=== PATIENT | male | born 1955 | race Caucasian/White ===

== ENCOUNTER 2023-01-05 11:10 | Inpatient (IN) | payer MEDICARE, SELFPAY ==
[2023-01-05] VITALS (19 sets, daily range): BP systolic 121–174; BP diastolic 68–103; PULSE 61–94; RESP 14–18; TEMP 36.1–37.1; O2SAT 91–99; BMI 32.3
--- NOTE | 2023-01-05 11:35 | ECG_ITS ---
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 Measurements Intervals [place] Rate: 61 P: 26 MO: 200 QRS: -25 QRSD: 110 T: -12 QT: 424 QTc: 430 Interpretive Statements SINUS RHYTHM BORDERLINE LEFT AXIS DEVIATION [QRS AXIS < -20] INCOMPLETE RIGHT BUNDLE BRANCH BLOCK [90+ ms QRS DURATION, TERMINAL R IN V1/V2, 40+ ms S IN I/aVL/V4/V5/V6] MODERATE VOLTAGE CRITERIA FOR LVH, CONSIDER NORMAL VARIANT [MEETS CRITERIA IN ONE OF: R(aVL), S(V1), R(V5), R(V5/V6)+S(V1)] No previous ECG available for comparison Electronically Signed On 01-06-2023 8:31:40 CDT by Steve Zhu M.D. [id number]
--- NOTE | 2023-01-05 11:40 | W.ED.ABDPA2 ---
HPI - Abdominal Pain General: Chief Complaint: Abdominal Pain Stated Complaint: upper stomach pain Time Seen by Provider: 01/05/23 11:11 History of Present Illness: Mr. Ramirez is a 67-year-old gentleman without significant past medical history presenting to the emergency department for evaluation of epigastric pain. Notes onset of symptoms just before 8 after eating breakfast. Denies choking episode or known specific provoking event. Has had nausea but no vomiting. Past few days has been at baseline health. Moderate intensity. Course has persisted. No other specific changes in health, exacerbating, or alleviating factors identified. Onset (ago): hour(s) Pain Consistency: constant Location: Epigastric Severity: moderate Quality: cramping Relieving factors: nothing Associated Symptoms: Reports nausea; Denies diarrhea, fever(s) and vomiting Review of Systems General: Reports: 10 or more systems reviewed and unremarkable except in HPI and below Const: Denies: fever(s) GI: Reports: nausea; Denies: vomiting or diarrhea PFS ED PFSH: Medical History (Updated 01/16/23 @ 13:24 by DALLIN Rausch) Complete small bowel obstruction Dehydration Leukocytosis No significant past medical history Surgical History No significant past surgical history Social History (Updated 01/16/23 @ 13:25 by DALLIN Rausch) Smoking and tobacco status: never smoked Physical Exam Const: COMMON NORMALS: alert GENERAL APPEARANCE: cooperative and well developed HENMT: COMMON NORMALS: normocephalic and atraumatic HEAD & SCALP: normocephalic and atraumatic Eye: COMMON NORMALS: conjunctivae normal CONJUNCTIVA: Yes conjunctivae normal SCLERA: sclerae normal Neck/C-Spine: COMMON NORMALS: supple GENERAL: Yes trachea midline Resp: COMMON NORMALS: normal respiratory effort and clear to auscultation bilaterally EFFORT & INSPECTION: Yes able to speak in complete sentences AUSCULTATION: clear to auscultation bilaterally Cardio: COMMON NORMALS: regular rate and regular rhythm RATE: regular rate RHYTHM: regular rhythm GI: COMMON NORMALS: Soft to palpation PALPATION: Yes Soft to palpation, Yes Tenderness to palpation present (GI), No Guarding due to palpation present (GI) and No Rigid due to palpation Extremity: GENERAL: Yes normal exam except as noted and No edema Neuro: COMMON NORMALS: moves all extremities SENSORIUM/ORIENTATION: Yes alert and No Orientation impaired Psych: COMMON NORMALS: mental status grossly normal and Normal thought process present THOUGHT PROCESS: Normal thought process present Course Vital Signs: Vital signs: Vital Signs Temperature 98.2 F 01/09/23 07:31 Pulse Rate 77 01/09/23 11:07 Respiratory Rate 18 01/09/23 11:07 Blood Pressure 155/97 01/09/23 07:31 Pulse Oximetry 94 01/09/23 11:07 Oxygen Delivery Me thod Room Air 01/09/23 07:41 Oxygen Flow Rate 0 01/08/23 20:00 MDM - Abdominal Pain Medical Decision Making 67-year-old gentleman presenting with abdominal symptoms. Exam as above. Nontoxic. Abdominal tenderness without evidence of acute surgical abdomen. EKG demonstrates sinus rhythm with left axis deviation and interventricular conduction delay. Nonspecific ST segment abnormalities, no STEMI. Labs with no leukocytosis, microcytic anemia, normal platelet count. Metabolic panel without significant derangement. Negative range 2-hour delta troponin. CT demonstrates high-grade closed-loop small bowel obstruction with transition point in the left lower quadrant without clear cause of obstruction identified. During ED course patient treated with antiemetic, analgesia. Discussed with general surgery who came to about the patient. Plan for operative management. Hospital service consulted for admission. The results of ED evaluation were discussed with the patient including plan for admission due to requirement for level of care not available if discharged to prevent significant worsening/deterioration. Patient agreeable with plan. Medical Records I reviewed the patient's medical records. Lab Data I reviewed the patient's lab results. 01/09/23 04:20 01/08/23 04:27 Labs/Radiology: Radiology Impressions Abdomen/Pelvis CT 01/05/23 12:36 IMPRESSION: 1. High-grade closed loop small bowel obstruction with transition point in the left lower quadrant. The cause of obstruction is not apparent. No sign of bowel necrosis. 2. Moderate splenic enlargement. 3. Incidental findings above. ADDENDUM: 01/05/23 [id number] THIS REPORT CONTAINS FINDINGS THAT MAY BE CRITICAL TO PATIENT CARE. The findings were verbally communicated via telephone conference with Cruz Castro at 1:31 PM CDT on 01/05/2023. The findings were acknowledged and understood. Laboratory Results WBC 9.7 10^3/uL (4.0-10.0) 01/05/23 11:49 RBC 5.27 10^6/uL (4.1-5.3) 01/05/23 11:49 Hgb 10.6 g/dL (11.7-16.6) L 01/05/23 11:49 Hct 34.4 % (42.0-52.0) L 01/05/23 11:49 MCV 65.3 fl (80-94) L 01/05/23 11:49 MCH 20.1 pg (28.0-34.0) L 01/05/23 11:49 MCHC 30.8 g/dL (30.0-36.0) 01/05/23 11:49 RDW 16.0 % (12.1-15.1) H 01/05/23 11:49 Plt Count 347 10^3/cmm (130-400) 01/05/23 11:49 MPV 11.2 fL (7.4-10.4) H 01/05/23 11:49 Neut % (Auto) 85.0 % 01/05/23 11:49 Lymph % (Auto) 9.3 % 01/05/23 11:49 [place] % (Auto) 4.4 % 01/05/23 11:49 Eos % (Auto) 0.5 % 01/05/23 11:49 Baso % (Auto) 0.5 % 01/05/23 11:49 Neut # (Auto) 8.25 10^3/uL (1.8-7.7) H 01/05/23 11:49 Lymph # (Auto) 0.9 10^3/uL (0.8-4.8) 01/05/23 11:49 [place] # (Auto) 0.4 10^3/uL (0.2-0.9) 01/05/23 11:49 Eos # (Auto) 0.1 10^3/uL (0.0-0.8) 01/05/23 11:49 Baso # (Auto) 0.1 10^3/uL (0.0-0.1) 01/05/23 11:49 Nucleated RBC % (auto) 0.2 % 01/05/23 11:49 Nucleated RBCs # 0.0 /100WBC 01/05/23 11:49 Sodium 141 mmol/L (136-145) 01/05/23 11:49 Potassium 4.7 mmol/L (3.5-5.1) 01/05/23 11:49 Chloride 104 mmol/L (98-107) 01/05/23 11:49 Carbon Dioxide 26 mmol/L (22-29) 01/05/23 11:49 Anion Gap 15.7 (5-19) 01/05/23 11:49 BUN 18 mg/dL (8-23) 01/05/23 11:49 Creatinine 0.7 mg/dL (0.7-1.2) 01/05/23 11:49 GFR Calculation 112.5 mL/min (90-130) 01/05/23 11:49 Glucose 116 mg/dL (65-115) H 01/05/23 11:49 Calculated Osmolality 295 mOsm/kg (285-295) 01/05/23 11:49 Lactic Acid 1.0 mmol/L (0.5-2.2) 01/05/23 13:52 Calcium 9.2 mg/dL (8.5-10.5) 01/05/23 11:49 Total Bilirubin 0.8 mg/dL (0.15-1.2) 01/05/23 11:49 AST 15 U/L (0-40) 01/05/23 11:49 ALT 21 U/L (0-41) 01/05/23 11:49 Alkaline Phosphatase 67 U/L (40-130) 01/05/23 11:49 Troponin T Baseline 9 ng/L (0-15) 01/05/23 11:49 Troponin T 120 Minute 6.25 ng/L (0-15) 01/05/23 13:52 Delta Troponin T -2.75 ABS# (0-10) L 01/05/23 13:52 Total Protein 7.6 g/dL (6.6-8.7) 01/05/23 11:49 Albumin 4.7 g/dL (3.5-5.2) 01/05/23 11:49 Globulin 2.9 g/dL (1.3-4.6) 01/05/23 11:49 Lipase 22 U/L (13-60) 01/05/23 11:49 Vitamin B12 569 pg/mL (232-1245) 01/05/23 16:38 Blood Type A Positive 01/05/23 16:38 Rho(D) Type Positive 01/05/23 16:38 Antibody Screen Negative 01/05/23 16:38 Discharge Plan Discharge Patient Disposition: Admitted As Inpatient Admit Provider: Dean Brasher Clinical Impression: Complete small bowel obstruction Condition: Stable Discharge Diet: GI Soft Discharge Activity: Increase activity as tolerated Coding Level of Care Code ED Lapping Machine Set Up Operator for Claug Sandro
[2023-01-05] MEDS: ondansetron 2 mg/ML SDV 2 mL 4 MG IVP ×3 (11:52→21:48)
[2023-01-05] MEDS: morphine 4 mg/mL SDV 1 mL IVP (11:53)
[2023-01-05 11:57] LABS: Basophils # 0.1 10^3/uL (0.0-0.1); Basophils % 0.5 %; Eosinophils # 0.1 10^3/uL (0.0-0.8); Eosinophils % 0.5 %; Hematocrit 34.4 % (42.0-52.0); Hemoglobin 10.6 g/dL (11.7-16.6); Lymphocytes # 0.9 10^3/uL (0.8-4.8); Lymphocytes % 9.3 %; Mean Corpuscular HGB Conc 30.8 g/dL (30.0-36.0); Mean Corpuscular Hemoglobin 20.1 pg (28.0-34.0); Mean Corpuscular Volume 65.3 fl (80-94); Mean Platelet Volume 11.2 fL (7.4-10.4); Monocytes # 0.4 10^3/uL (0.2-0.9); Monocytes % 4.4 %; Neutrophils # 8.25 10^3/uL (1.8-7.7); Nucleated Red Blood Cells % 0.2 %; Platelet Count 347 10^3/cmm (130-400); Red Blood Count 5.27 10^6/uL (4.1-5.3); White Blood Count 9.7 10^3/uL (4.0-10.0)
[2023-01-05 12:26] LABS: Alanine Aminotransferase 21 U/L (0-41); Albumin Level 4.7 g/dL (3.5-5.2); Alkaline Phosphatase 67 U/L (40-130); Anion Gap 15.7 (5-19); Aspartate Amino Transferase 15 U/L (0-40); Blood Urea Nitrogen 18 mg/dL (8-23); Calcium 9.2 mg/dL (8.5-10.5); Carbon Dioxide 26 mmol/L (22-29); Chloride 104 mmol/L (98-107); Globulin 2.9 g/dL (1.3-4.6); Glomerular Filtration Rate 112.5 mL/min (90-130); Glucose 116 mg/dL (65-115); Lipase 22 U/L (13-60); Osmolality Calculated 295 mOsm/kg (285-295); Potassium 4.7 mmol/L (3.5-5.1); Sodium 141 mmol/L (136-145); Total Bilirubin 0.8 mg/dL (0.15-1.2); Total Protein 7.6 g/dL (6.6-8.7)
[2023-01-05 12:29] LABS: Troponin(5th) Baseline 9 ng/L (0-15)
--- NOTE | 2023-01-05 12:36 | CTR_ITS ---
PROCEDURE INFORMATION: Exam: CT Abdomen And Pelvis With Contrast Exam date and time: 01/05/2023 12:49 PM Age: 67 years old Clinical indication: Abdominal pain; Epigastric; Additional info: Epigastric pain TECHNIQUE: Imaging protocol: Computed tomography of the abdomen and pelvis with contrast. Radiation optimization: All CT scans at this facility use at least one of these dose optimization techniques: automated exposure control; mA and/or kV adjustment per patient size (includes targeted exams where dose is matched to clinical indication); or iterative reconstruction. Contrast material: OMNI 350; Contrast volume: 100 ml; Contrast route: INTRAVENOUS (IV); REPORTING DATA: Count of CT and Cardiac NM exams in prior 12 months: This patient has received 0 known CTs and 0 known cardiac nuclear medicine studies in the 12 months prior to the current study. COMPARISON: No relevant prior studies available. RADIATION DOSE METRICS: Total DLP (mGy-cm): 1055.84 FINDINGS: Lungs: Lung bases are clear. Liver: The liver is normal. Gallbladder and bile ducts: The gallbladder is normal. There is no biliary dilation. Pancreas: The pancreas is unremarkable. Spleen: The spleen is moderately enlarged. Adrenal glands: The adrenal glands are unremarkable. Kidneys and ureters: The kidneys are unremarkable. No hydronephrosis or stones. No ureteral dilation. Stomach and bowel: There is a closed loop obstruction involving proximal small bowel. There is a long segment of moderately dilated fluid-filled small bowel in the left mid to lower abdomen. Adjacent transition points are seen in the left lower quadrant on axial series 4, image 59 and coronal series 6, image 19. Small bowel is completely decompressed distally. There is mild perienteric edema of the dilated segment. No mural pneumatosis. The colon is unremarkable. The stomach is mildly distended. The wall is of normal thickness. Appendix: The appendix is normal. Intraperitoneal space: There is no free air or significant intraperitoneal free fluid. Vasculature: There is mild aortic atherosclerotic disease. The portal, splenic and superior mesenteric veins are patent. No portal venous gas. Lymph nodes: There is no lymphadenopathy in the retroperitoneum, mesentery, pelvis or inguinal regions. Urinary bladder: The urinary bladder is unremarkable. Reproductive: The prostate and seminal vesicles are unremarkable. Bones/joints: There is moderate degenerative disease in the lumbar spine. The pelvis and hips are unremarkable. Soft tissues: There is a small fat containing right inguinal hernia. CT/CT abdomen pelvis w con* [id number] IMPRESSION: 1. High-grade closed loop small bowel obstruction with transition point in the left lower quadrant. The cause of obstruction is not apparent. No sign of bowel necrosis. 2. Moderate splenic enlargement. 3. Incidental findings above.
[2023-01-05] MEDS: iohexol 350 mg/mL 500 mL Btl (per mL) IV (12:51)
--- NOTE | 2023-01-05 14:05 | ECG_ITS ---
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 Measurements Intervals [place] Rate: 63 P: 38 WA: 201 QRS: -26 QRSD: 112 T: -3 QT: 423 QTc: 433 Interpretive Statements SINUS RHYTHM BORDERLINE LEFT AXIS DEVIATION [QRS AXIS < -20] INCOMPLETE RIGHT BUNDLE BRANCH BLOCK [90+ ms QRS DURATION, TERMINAL R IN V1/V2, 40+ ms S IN I/aVL/V4/V5/V6] MODERATE VOLTAGE CRITERIA FOR LVH, CONSIDER NORMAL VARIANT [MEETS CRITERIA IN ONE OF: R(aVL), S(V1), R(V5), R(V5/V6)+S(V1)] Compared to ECG 01/05/2023 11:48:50 No significant changes Electronically Signed On 01-06-2023 8:36:47 CDT by Steve Zhu M.D. [id number]
[2023-01-05 14:29] LABS: Troponin 5 2HR 6.25 ng/L (0-15)
--- NOTE | 2023-01-05 14:30 | PC.NURSE ---
pt refused NG tube placement until he speaks with surgeon. Gloria notified
[2023-01-05 15:07] LABS: Troponin 5 2HR Delta -2.75 ABS# (0-10)
--- NOTE | 2023-01-05 15:38 | P.CONIM_ITS ---
Providers/Reason For Consult Consulting Physician/Specialty*: General surgery Reason for Consult*: Small bowel obstruction Requesting Physician: Dr. Castro Primary Care Provider: Soy Fenton [facility]- History of Present Illness History of Present Illness Dennis Ramirez is a 67 year old male with past medical history of thalassemia minor who presents with 8 hours of abdominal pain and distention. Patient states that after breakfast he started feeling abdominal pain which has increased in intensity pain is cramping and has become continuous now 6-7 out of 10. Minimal nausea but denies vomiting. Patient denies any previous surgical interventions in the abdomen. Denies changes in bowel habits over the last month. Last bowel movement was this morning, has not passed gas since then. Review of Systems Narrative: 10 point review of systems was done and is negative otherwise noted in HPI General: Well-developed, no other constitutional symptoms Respiratory: No respiratory stress Abdomen: Abdominal pain, nausea, distention Musculoskeletal: Occasional right knee pain. Medications/Allergies Home Medications Medication Instructions Recorded Confirmed Last Taken Type Lactobacillus acidophilus 20,000 mmu cells PO DAILY 01/05/23 01/05/23 01/05/23 History (Acidophilus capsule) alfalfa 250 mg tablet 1,750 mg PO DAILY 01/05/23 01/05/23 01/05/23 History ascorbic acid (vitamin C) 500 mg 4,000 mg PO DAILY 01/05/23 01/05/23 01/05/23 History tablet (Vitamin C) beta carotene 30 mg capsule 30 mg PO DAILY 01/05/23 01/05/23 01/05/23 History cinnamon bark 500 mg capsule 3,500 mg PO DAILY 01/05/23 01/05/23 01/05/23 History (Cinnamon) coconut oil 1,000 mg capsule 2,000 mg PO DAILY 01/05/23 01/05/23 01/05/23 History garlic 100 mg tablet 300 mg PO DAILY 01/05/23 01/05/23 01/05/23 History bharath root extract 15 mg chewable 45 mg PO DAILY 01/05/23 01/05/23 01/05/23 Hi story tablet green tea leaf extract 2 cap PO DAILY 01/05/23 01/05/23 01/05/23 History meloxicam 7.5 mg tablet 7.5 mg PO DAILY 01/05/23 01/05/23 01/05/23 History saw palm 160 mg-vit E 100 3 tab PO DAILY 01/05/23 01/05/23 01/05/23 History unit-selen 100 yvk-esys-uoirzk-pygeum tablet ([facility]) saw palmetto 160 mg capsule 1,120 mg PO DAILY 01/05/23 01/05/23 01/05/23 History selenium 200 mcg tablet 200 mcg PO DAILY 01/05/23 01/05/23 01/05/23 History tramadol 50 mg tablet 50 mg PO Q6H PRN Pain 01/05/23 01/05/23 Unknown History Allergies Allergy/AdvReac Type Severity Reaction Status Date / Time pork derived (porcine) Allergy Unknown Verified 01/05/23 11:28 shellfish derived Allergy Unknown Verified 01/05/23 11:28 PFSH Acute PFSH: Medical History (Updated 01/05/23 @ 15:18 by Cruz Castro MD) No significant past medical history Surgical History (Updated 01/05/23 @ 11:53 by Cruz Castro MD) No significant past surgical history Vitals/I&O/Wt Last Vital Signs Temp 98.0 F 01/05/23 11:22 Pulse 66 01/05/23 11:22 Resp 14 01/05/23 11:22 BP 145/87 01/05/23 11:22 Pulse Ox 97 01/05/23 11:22 O2 Del Method Room Air 01/05/23 11:22 Weight last 48 hrs Weight 225 lb Physical Exam Narrative: General : Patient is well developed, oriented x3 Head : Normal cephalic, a-traumatic. Nose : Mucous membranes are without erythema. Lungs : Equal chest rise bilaterally, no use of accessory muscles, trachea is midline. CV : Rate and rhythm are normal. Abdomen : Abdomen is minimally distended, tender on the mid abdomen and left lower quadrant, no peritoneal signs at the moment. Data 01/05/23 11:49 01/05/23 11:49 A&P Assessment and plan (1) Complete small bowel obstruction: Is a 67-year-old male with no surgical history and past history of thalassemia minor who presents with abdominal pain over the last 8 hours. Work-up in the emergency department included a CT scan which show evidence of a closed-loop obstruction with a transition point in the left lower quadrant. I Personally reviewed all labs and imaging I agree with the radiological assessment, I cannot identify a specific cause of obstruction. I have discussed with the patient potential treatment options, and the need for surgery. I have offered exploratory laparotomy with possible small bowel resection, possible ostomy creation, and other related procedures. I Thoroughly explained all the risk and benefits of the operation including the risks of ostomy creation, need for bowel resection, damage to surrounding structures, bleeding, need for additional surgical interventions, adhesions, leak, recurrent small bowel obstruction, . Patient and family members shows understanding of our discussion and agree to proceed with surgery. Due to history of thalassemia minor and high likelihood of need of close monitoring during postoperative care I have requested the patient to be evaluated by our hospitalist team for inpatient management. ? On-call to the OR for exploratory laparotomy. ? NG tube discussed and patient agreeable ? We will administer 1 L bolus of LR ? Consultation to hospitalist team is required for inpatient management Coding Level of Care Code 94113 Diagnoses Complete small bowel obstruction K56.601
--- NOTE | 2023-01-05 15:42 | P.HP_ITS ---
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 No previous history of abdominal surgeries. In the ER he was diagnosed with closed-loop obstruction he was taken to the OR by the surgeon, hospitalist was requested to admit the patient for postoperative management. Review of Systems Const: Denies: fever(s) Eyes: Denies: change in vision ENMT: Denies: throat pain Card: Denies: chest pain Resp: Denies: dyspnea GI: Denies: nausea : Denies: flank pain Musc: Denies: neck pain Skin/Breast: Denies: skin tenderness Medications/Allergies Home Medications Medication Instructions Recorded Confirmed Last Taken Type Lactobacillus acidophilus 20,000 mmu cells PO DAILY 01/05/23 01/05/23 01/05/23 History (Acidophilus capsule) alfalfa 250 mg tablet 1,750 mg PO DAILY 01/05/23 01/05/23 01/05/23 History ascorbic acid (vitamin C) 500 mg 4,000 mg PO DAILY 01/05/23 01/05/23 01/05/23 History tablet (Vitamin C) beta carotene 30 mg capsule 30 mg PO DAILY 01/05/23 01/05/23 01/05/23 History cinnamon bark 500 mg capsule 3,500 mg PO DAILY 01/05/23 01/05/23 01/05/23 Hist ory (Cinnamon) coconut oil 1,000 mg capsule 2,000 mg PO DAILY 01/05/23 01/05/23 01/05/23 His tory garlic 100 mg tablet 300 mg PO DAILY 01/05/23 01/05/23 01/05/23 History bharath root extract 15 mg chewable 45 mg PO DAILY 01/05/23 01/05/23 01/05/23 History tablet green tea leaf extract 2 cap PO DAILY 01/05/23 01/05/23 01/05/23 History meloxicam 7.5 mg tablet 7.5 mg PO DAILY 01/05/23 01/05/23 01/05/23 History saw palm 160 mg-vit E 100 3 tab PO DAILY 01/05/23 01/05/23 01/05/23 History unit-selen 100 unf-fkth-wvvdjl-pygeum tablet ([facility]) saw palmetto 160 mg capsule 1,120 mg PO DAILY 01/05/23 01/05/23 01/05/23 History selenium 200 mcg tablet 200 mcg PO DAILY 01/05/23 01/05/23 01/05/23 History tramadol 50 mg tablet 50 mg PO Q6H PRN Pain 01/05/23 01/05/23 Unknown History Allergies Allergy/AdvReac Type Severity Reaction Status Date / Time pork derived (porcine) Allergy Unknown Verified 01/05/23 11:28 shellfish derived Allergy Unknown Verified 01/05/23 11:28 PFSH Acute PFSH: Medical History No significant past medical history Surgical History No significant past surgical history Vitals/I&O/Wt Last Vital Signs Temp 98.0 F 01/05/23 11:22 Pulse 66 01/05/23 11:22 Resp 14 01/05/23 11:22 BP 145/87 01/05/23 11:22 Pulse Ox 97 01/05/23 11:22 O2 Del Method Room Air 01/05/23 11:22 Weight last 48 hrs Weight 102.058 kg Physical Exam Narrative: Patient awake and alert Thin lean male GCS 15 Currently on room air Going to the OR Nonfocal neuro exam Awake and alert Tender abdomen Data 01/06/23 02:20 01/06/23 02:20 A&P Assessment and plan (1) Complete small bowel obstruction: Plan Closed-loop bowel obstruction Status post adhesiolysis Postop day 0 Continue IV fluids We will continue Zosyn and NG tube in place for next 48 hours If patient remains afebrile without worsening leukocytosis then will discontinue antibiotics He will stay at least until Friday Monitor for bowel movement and passage of flatus Patient has history of thalassemia minor monitor hemoglobin no hemodynamic instability Add DVT prophylaxis If patient is not able to eat in next 24 hours I will start PPN Full code N.p.o. Spoke with the surgeon Attestations Medical Necessity Statement*: More than 2 midnights anticipated for management of SBO Diagnoses Complete small bowel obstruction K56.601
--- NOTE | 2023-01-05 16:11 | P.ANESASSM_ITS ---
Pre-Anesthetic Assessment Height/Weight: Height 1.78 m Weight 102.058 kg Temp Pulse Resp BP Pulse Ox O2 Del Method 98.0 F 61 17 152/99 99 Room Air 01/05/23 11:22 01/05/23 15:45 01/05/23 15:45 01/05/23 15:45 01/05/23 15:45 01/05/23 11:22 ex lap Familial anesthetic complications: none Was Beta Zechariah taken within 24 hours: N/A Was Clonidine taken within 24 hours: N/A Last Intake: 07:00 Social No alcohol and No tobacco Exam alert and oriented x 3 Airway Submandibular: within normal limits Cervical ROM: within normal limits Mallampati: Class II Dentition: full Comments: Comments: full crum History/ROS No significant history except as noted Pulmonary None reported CV/HEM Murmur thalassemia minor None reported Hepatic None reported GI None reported Metabolic Morbid Obesity Musc/sk None reported Neuropsych None reported Anesthetic Plan ASA status: 2E Anesthesia: Anesthesia Evaluation and General Risk of > 500 ml blood loss (7ml/kg in children): Yes, adequate IV access and fluids planned Medications/Allergies Home Medications Medication Instructions Recorded Confirmed Last Taken Type Lactobacillus acidophilus 20,000 mmu cells PO DAILY 01/05/23 01/05/23 01/05/23 History (Acidophilus capsule) alfalfa 250 mg tablet 1,750 mg PO DAILY 01/05/23 01/05/23 01/05/23 History ascorbic acid (vitamin C) 500 mg 4,000 mg PO DAILY 01/05/23 01/05/23 01/05/23 History tablet (Vitamin C) beta carotene 30 mg capsule 30 mg PO DAILY 01/05/23 01/05/23 01/05/23 History cinnamon bark 500 mg capsule 3,500 mg PO DAILY 01/05/23 01/05/23 01/05/23 History (Cinnamon) coconut oil 1,000 mg capsule 2,000 mg PO DAILY 01/05/23 01/05/23 01/05/23 History garlic 100 mg tablet 300 mg PO DAILY 01/05/23 01/05/23 01/05/23 History bharath root extract 15 mg chewable 45 mg PO DAILY 01/05/23 01/05/23 01/05/23 History tablet green tea leaf extract 2 cap PO DAILY 0701/05/23 01/05/23 History meloxicam 7.5 mg tablet 7.5 mg PO DAILY 01/05/23 01/05/23 01/05/23 History saw palm 160 mg-vit E 100 3 tab PO DAILY 01/05/23 01/05/23 01/05/23 History unit-selen 100 thh-szio-gzkvmf-pygeum tablet (Prostate Health) saw palmetto 160 mg capsule 1,120 mg PO DAILY 01/05/23 01/05/23 01/05/23 History selenium 200 mcg tablet 200 mcg PO DAILY 01/05/23 01/05/23 01/05/23 History tramadol 50 mg tablet 50 mg PO Q6H PRN Pain 01/05/23 01/05/23 Unknown History Allergies Allergy/AdvReac Type Severity Reaction Status Date / Time pork derived (porcine) Allergy Unknown Verified 01/05/23 11:28 shellfish derived Allergy Unknown Verified 01/05/23 11:28 [facility] Anesthesia Medical History No significant past medical history Surgical History No significant past surgical history Data Anesthesia 01/05/23 11:49 01/05/23 11:49 Short CBC 01/05/23 Range/Units 11:49 WBC 9.7 (4.0-10.0) 10^3/uL Hgb 10.6 L (11.7-16.6) g/dL Hct 34.4 L (42.0-52.0) % MCV 65.3 L (80-94) fl Plt Count 347 (130-400) 10^3/cmm Neut % (Auto) 85.0 % Neut # (Auto) 8.25 H (1.8-7.7) 10^3/uL BMP 01/05/23 11:49 Sodium 141 Potassium 4.7 Chloride 104 Carbon Dioxide 26 BUN 18 Creatinine 0.7 Glucose 116 H Calcium 9.2 Cardiac Enzymes 01/05/23 01/05/23 Range/Units 11:49 13:52 Troponin T Baseline 9 (0-15) ng/L Troponin T 120 Minute 6.25 (0-15) ng/L Delta Troponin T -2.75 L (0-10) ABS# Liver Function 01/05/23 Range/Units 11:49 Total Bilirubin 0.8 (0.15-1.2) mg/dL AST 15 (0-40) U/L ALT 21 (0-41) U/L Alkaline Phosphatase 67 (40-130) U/L Albumin 4.7 (3.5-5.2) g/dL Cardiac Studies: No Data to Display
[2023-01-05] MEDS: metroNIDAZOLE IV 500 MG/100 ML PREMIX 100 MG IV (16:55)
[2023-01-05] MEDS: piperacillin-tazobactam 3.375 GM in sodium chloride 0.9% (plus) 50 ML IV (17:02)
--- NOTE | 2023-01-05 17:35 | ECG_ITS ---
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 Measurements Intervals [place] Rate: 78 P: 40 [place]: 200 QRS: -37 QRSD: 118 T: 7 QT: 414 QTc: 474 Interpretive Statements SINUS RHYTHM LEFT AXIS DEVIATION [QRS AXIS < -30] MODERATE INTRAVENTRICULAR CONDUCTION DELAY [110+ ms QRS DURATION] VOLTAGE CRITERIA FOR LVH [MEETS CRITERIA IN ONE OF: R(aVL), S(V1), R(V5), R(V5/V6)+S(V1)] Compared to ECG 01/05/2023 14:05:51 Intraventricular conduction delay now present Incomplete right bundle-branch block no longer present Electronically Signed On 01-06-2023 8:35:58 CDT by Steve Zhu M.D. [email or web address]
[2023-01-05 17:36] LABS: Vitamin B12 569 pg/mL (232-1245)
--- NOTE | 2023-01-05 18:27 | PM.OP ---
Operative Report Date of procedure: January 05, 2023 Pre-op diagnosis: Closed loop small bowel obstruction Post-op diagnosis: Closed-loop small bowel obstruction Post-op findings: Mid jejunum with small bowel obstruction caused by an adhesive band on the left lower quadrant. Adhesive band near the terminal ileum. No evidence of bowel compromise, no evidence of masses on abdominal examination. Procedure done: Exploratory laparotomy, adhesiolysis Surgeon: Dean Brasher MD Estimated blood loss: 25 cc IV fluids: 900 Urine output: 100 Complications: None Findings: Mid jejunum with small bowel obstructioncaused by an adhesive band on the left lower quadrant. Adhesive band near the terminal ileum. No evidence of bowel compromise, no evidence of masses on abdominal examination. Brief History: This is a 67-year-old male with history of thalassemia minor and no previous surgical history who presented complaining of abdominal pain in the left lower quadrant and epigastrium region for the last 8 hours he also complained of nausea no episodes of vomiting CAT scan done in the emergency department show evidence of a closed-loop small bowel obstruction with a transition point in the left lower quadrant, no specific cause could be identified on imaging. Due to the findings I offer exploratory laparotomy, after explaining all the risk and benefits of the procedure as documented in my consultation note. Consent was obtained for the procedure and patient was transferred to the operative room Procedure: Patient was placed in the supine position, intubated without difficulty, NG tube placed with 600 cc of feculent content. [place] catheter was also placed. The abdomen was prepped and draped in the usual sterile fashion. A 20 cm midline laparotomy incision was made, the incision was carried down to the level of the fascia. The abdomen was entered and careful consideration of not injuring the underlying structures. Minimal amount of intraperitoneal fluid was drained. Upon entry it was noted that the small bowel appeared to be dilated and congested, upon closing perspective and of the left lower quadrant an adhesive band was noted in the mid jejunum, the bowel was bluntly dissected, and the intestine freed. The small bowel was then eviscerated and evaluated from the ligament of Treitz to the terminal ileum. At the level where the adhesive band was noted there was signs of constriction of the small bowel as represented by bruising of the mesentery and the bowel, but no signs of ischemia. About 5 cm from the terminal ileum and additionally adhesive band was noted and lysed with Metzenbaum scissors. Intestinal content was milked distally of the point of obstruction to ensure adequate passage. Small bowel appeared to be viable and therefore it was returned to the abdominal cavity. I then examined the colon and rectum for possible masses and none were apparent. The NG tube position was confirmed in the stomach. No additional intervention was needed. The abdomen was closed in layers using 0 PDS for the fascia and yvette for the skin, the wound was irrigated before closing. Sterile dressing was applied. The patient tolerated well the procedure, was extubated and transferred to the recovery room without complications and in stable condition. I personally performed the whole operation and was scrubbed during the complete case. Related Problem List Diagnoses (1) Complete small bowel obstruction:
[2023-01-05 21:07] LABS: Troponin 5 6HR 6.01 ng/L (0-15)
[2023-01-05 21:14] LABS: Troponin 5 6HR Delta -2.99 ng/L (0-12)
[2023-01-05] MEDS: pantoprazole 40 mg SDV IVP (21:48)
--- NOTE | 2023-01-05 22:13 | PC.NURSE ---
Pt came to floor with NG tube and ng catheter in place. Ng patent and draining, NG tube placement checked and hooked up to low intermittent wall suction, draining appropriately.
[2023-01-05] MEDS: dextrose 5%-sod chloride 0.9% 1,000 ML 75 ML IV (22:44)
[2023-01-06] VITALS (12 sets, daily range): BP systolic 121–153; BP diastolic 76–89; PULSE 75–95; RESP 15–18; TEMP 36.4–37.4; O2SAT 91–94
[2023-01-06] MEDS: piperacillin-tazobactam 3.375 GM in sodium chloride 0.9% (plus) 50 ML IV ×3 (00:27→16:27)
[2023-01-06 03:28] LABS: Basophils % 0.1 %; Hematocrit 31.8 % (42.0-52.0); Hemoglobin 9.7 g/dL (11.7-16.6); Lymphocytes # 0.3 10^3/uL (0.8-4.8); Lymphocytes % 3.2 %; Mean Corpuscular HGB Conc 30.5 g/dL (30.0-36.0); Mean Corpuscular Hemoglobin 20.1 pg (28.0-34.0); Mean Platelet Volume 11.5 fL (7.4-10.4); Monocytes # 0.2 10^3/uL (0.2-0.9); Monocytes % 1.7 %; Neutrophils # 9.91 10^3/uL (1.8-7.7); Neutrophils % 94.4 %; Nucleated Red Blood Cells % 0 %; Platelet Count 325 10^3/cmm (130-400); Red Blood Count 4.82 10^6/uL (4.1-5.3); Red Cell Distribution Width 15.8 % (12.1-15.1); White Blood Count 10.5 10^3/uL (4.0-10.0)
[2023-01-06 03:51] LABS: Anion Gap 16.6 (5-19); Blood Urea Nitrogen 15 mg/dL (8-23); C Reactive Protein 11.7 mg/L (0.0-4.9); Calcium 8.6 mg/dL (8.5-10.5); Carbon Dioxide 23 mmol/L (22-29); Chloride 105 mmol/L (98-107); Glomerular Filtration Rate 96.4 mL/min (90-130); Glucose 178 mg/dL (65-115); Osmolality Calculated 295 mOsm/kg (285-295); Phosphorus 3.3 mg/dL (2.5-4.5); Potassium 4.6 mmol/L (3.5-5.1); Sodium 140 mmol/L (136-145)
[2023-01-06] MEDS: HYDROmorphone 1 mg/mL INJ 1 mL 0.4 MG IVP ×4 (03:52→19:46)
--- NOTE | 2023-01-06 07:39 | PM.PN ---
Subjective Subjective: Postoperative day 1 status post exploratory laparotomy and lysis of additions for a small bowel obstruction. Patient doing well, has ambulated yesterday, pain improving, at the moment he only complains of incisional pain which is 3/10. NG tube in place, no output over the last 12 hours. Vitals/I&O/Wt Last Vital Signs Temp 97.6 F 01/06/23 07:26 Pulse 75 01/06/23 07:26 Resp 16 01/06/23 07:26 BP 138/82 01/06/23 07:26 Pulse Ox 92 01/06/23 07:26 O2 Del Method Room Air 01/06/23 07:26 O2 Flow Rate 3 01/05/23 20:08 01/05/23 01/06/23 01/06/23 22:59 06:59 14:59 Intake Total 150 / 150 50 / 200 Output Total 125 / 125 600 / 725 Balance -550 / -525 Weight last 48 hrs Weight 225 lb Physical Exam Narrative: General: Alert and oriented x3, in good spirits Abdomen: Surgical incision covered with bandages, abdominal binder in place, abdomen is soft and minimally tender, improved distention when compared to yesterday exam. Urinary Catheter Management: [place]: Cath Placed During This Visit: yes Reason for Continuing Indwelling Catheter: Other Urinary Catheter Date of Insertion: 01/05/23 Urinary Catheter Time of Insertion: 16:45 Data 01/06/23 02:20 01/06/23 02:20 A&P Assessment and plan (1) Complete small bowel obstruction: Postoperative day 1 status post exploratory laparotomy lysis of additions for SBO. Good postoperative progress, ambulating, no bowel function yet. I have explained to the patient that ambulation is most important part of his recovery, he would like to have NG tube removed, if no output until this afternoon I will likely remove NG tube. Will wait until there is return of bowel function before start advancing the diet. In the meantime patient can have ice chips. ? Continue NG to low intermittent wall suction. ?Richmond catheter can be removed once patient is ambulating ? Please provide patient with incentive spirometer ? Appreciate additional management by hospitalist team. Attestations Medical Necessity Statement*: Patient is status post lateral laparotomy will likely require 48 to 72 hours tomorrow hospital stay. Coding Level of Care Code Acute Code for Chg Fwd Diagnoses Complete small bowel obstruction K56.379
[2023-01-06] MEDS: pantoprazole 40 mg SDV IVP ×2 (10:09→18:40)
--- NOTE | 2023-01-06 12:08 | P.PN_ITS ---
Subjective Subjective: Patient is stating that he is very uncomfortable with NG tube there is no content in NG container at all patient is endorsing soreness around surgical site however no active pain No passage of flatus no BM yet No fever or worsening of leukocytosis Vitals/I&O/Wt Last Vital Signs Temp 97.5 F L 01/06/23 11:35 Pulse 85 01/06/23 11:35 Resp 15 01/06/23 11:35 BP 135/80 01/06/23 11:35 Pulse Ox 93 01/06/23 11:35 O2 Del Method Room Air 01/06/23 11:35 O2 Flow Rate 3 01/05/23 20:08 01/05/23 01/06/23 01/06/23 22:59 06:59 14:59 Intake Total 150 / 150 50 / 200 Output Total 125 / 125 600 / 725 Balance -550 / -525 Weight last 48 hrs Weight 102.058 kg Physical Exam Narrative: Awake and alert GCS 15 Surgical site without any acute changes Currently on room air Pleasant and cooperative NG tube to low intermittent suction Clinically does not look to be in significant dehydration IV fluids running at the bedside Urinary Catheter Management: [place]: Cath Placed During This Visit: yes Reason for Continuing Indwelling Catheter: Other Urinary Catheter Date of Insertion: 01/05/23 Urinary Catheter Time of Insertion: 16:45 Data 01/06/23 02:20 01/06/23 02:20 A&P Assessment and plan (1) Complete small bowel obstruction: Plan Status post adhesiolysis postop day 1 No leukocytosis No fever No passage of flatus or BM NG tube ordered to suction As per the patient surgeon was plan to remove NG by 1 PM Meanwhile I will ask my dietitian to start PPN if he is not able to eat by lunchtime Patient has pork and shellfish allergy we will make sure he does not get any products We are touching base with pharmacy Continue Zosyn DVT prophylaxis on board Continue IV fluids Attestations Medical Necessity Statement*: Continue medical management Coding Level of Care Code 09703 Moderate MDM includes number and complexity of problems actively addressed during encounter, amount and/or complexity of data reviewed/ordered and described risk of complication, morbidity or mortality of management as do cumented Diagnoses Complete small bowel obstruction K56.601
--- NOTE | 2023-01-06 14:39 | PM.MISC ---
Miscellaneous Note Purpose of Documentation: Patient update Note: I evaluated Mr. Koch at the bedside, minimal abdominal pain during my evaluation. I flushed his NG tube, output during the last 12 hours has been only 50 cc, but this still appears to be intestinal in nature. I have informed him of these findings to the patient and explained that I will prefer him to keep NG tube until tomorrow morning for monitoring, as no return of bowel function has been seen. I also informed that in case of removal he might present with nausea vomit and will require NG tube to be repositioned. After evaluation patient decided that he will prefer NG tube to be removed despite my professional advice. NG tube removed, patient will start to ambulate and once ambulating Richmond catheter can be removed.
[2023-01-06] MEDS: dextrose 5%-sod chloride 0.9% 1,000 ML 75 ML IV (15:20)
--- NOTE | 2023-01-06 19:32 | PC.NUTR ---
Consult for PPN received. Pharmacist stated protein in PPN is synthetic, so no issue with Pt's stated allergy to pork derived products. Recommend beginning PPN @ 23 mls/hr and increasing 20 mls Q8H until goal rate of 83 mls/hr is reached, with addition of MV 10 mls/day and standard electrolytes, or per MD discretion. Details in RD assessment.
[2023-01-07] VITALS (14 sets, daily range): BP systolic 135–149; BP diastolic 56–87; PULSE 70–86; RESP 14–20; TEMP 36.4–37.2; O2SAT 92–95
[2023-01-07] MEDS: HYDROmorphone 1 mg/mL INJ 1 mL 0.4 MG IVP ×5 (00:29→19:26)
[2023-01-07] MEDS: piperacillin-tazobactam 3.375 GM in sodium chloride 0.9% (plus) 50 ML IV ×3 (00:30→16:08)
[2023-01-07] MEDS: dextrose 5%-sod chloride 0.9% 1,000 ML 75 ML IV (04:51)
[2023-01-07 05:04] LABS: Basophils # 0.1 10^3/uL (0.0-0.1); Basophils % 0.4 %; Eosinophils # 0.2 10^3/uL (0.0-0.8); Eosinophils % 1.2 %; Hematocrit 30.7 % (42.0-52.0); Hemoglobin 9.5 g/dL (11.7-16.6); Lymphocytes % 16.1 %; Mean Corpuscular HGB Conc 30.9 g/dL (30.0-36.0); Mean Corpuscular Volume 64.8 fl (80-94); Mean Platelet Volume 10.5 fL (7.4-10.4); Monocytes # 0.7 10^3/uL (0.2-0.9); Monocytes % 5.3 %; Neutrophils # 9.33 10^3/uL (1.8-7.7); Neutrophils % 76.7 %; Nucleated Red Blood Cells # 0.1 /100WBC; Nucleated Red Blood Cells % 0.4 %; Platelet Count 319 10^3/cmm (130-400); Red Blood Count 4.74 10^6/uL (4.1-5.3); Red Cell Distribution Width 15.6 % (12.1-15.1); White Blood Count 12.2 10^3/uL (4.0-10.0)
[2023-01-07 05:22] LABS: Lactate (Lactic Acid level) 1.3 mmol/L (0.5-2.2)
[2023-01-07 05:25] LABS: Anion Gap 14.1 (5-19); Blood Urea Nitrogen 12 mg/dL (8-23); Calcium 8.6 mg/dL (8.5-10.5); Carbon Dioxide 24 mmol/L (22-29); Chloride 106 mmol/L (98-107); Glomerular Filtration Rate 96.4 mL/min (90-130); Glucose 119 mg/dL (65-115); Osmolality Calculated 291 mOsm/kg (285-295); Potassium 4.1 mmol/L (3.5-5.1); Sodium 140 mmol/L (136-145)
--- NOTE | 2023-01-07 07:57 | PM.PN ---
Subjective Subjective: Patient is now postoperative day 2 status post exploratory laparotomy lysis of adhesions for small bowel obstruction. NG tube was removed yesterday, since then no nausea or vomiting. No return of bowel function yet patient is feeling that the gas is coming through but nothing has passed yet. Patient has been ambulating. Complains of incisional pain, no abdominal cramping. Vitals/I&O/Wt Last Vital Signs Temp 98.7 F 01/07/23 07:49 Pulse 73 01/07/23 07:49 Resp 18 01/07/23 07:49 BP 148/78 01/07/23 07:49 Pulse Ox 92 01/07/23 07:49 O2 Del Method Room Air 01/07/23 07:49 O2 Flow Rate 3 01/05/23 20:08 01/06/23 01/07/23 01/07/23 22:59 06:59 14:59 Intake Total 50 / 1100 1170 / 2270 Balance 50 / 1100 1170 / 2270 Weight last 48 hrs Weight 225 lb Physical Exam Narrative: Abdomen: Abdomen is soft, appropriately tender to palpation in the incisional region, there is a laparotomy incision with yvette in place, no evidence of superficial infection. Urinary Catheter Management: [place]: Cath Placed During This Visit: yes, but has since been removed by the nurse Reason for Continuing Indwelling Catheter: Other Urinary Catheter Date of Insertion: 01/05/23 Urinary Catheter Time of Insertion: 16:45 Date Urinary Catheter Removed: 01/06/23 Time Urinary Catheter Discontinued: 18:42 Data 01/07/23 04:54 01/07/23 04:54 A&P Assessment and plan (1) Complete small bowel obstruction: Plan Postoperative day 2 status post exploratory laparotomy and lysis of additions for small bowel obstruction. No return of bowel function yet, abdominal exam is benign, patient will continue to ambulate. We will continue to monitor WBC as there is an uptrend from baseline which is likely reactive after surgery. Richmond catheter was discontinued yesterday and patient is voiding freely. ? Continue n.p.o. ? Ambulate as tolerated ? Continue IV antibiotics ? We will monitor for bowel function once bowel function returns diet can be advanced ? All other care by hospitalist team Attestations Medical Necessity Statement*: Patient is a status post exploratory laparotomy for small bowel obstruction. Will likely require 2-3 more days of hospital stay Coding Level of Care Code Acute Code for Chg Fwd Diagnoses Complete small bowel obstruction K56.601
--- NOTE | 2023-01-07 09:34 | PC.CHAP ---
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 visit [] Patient/Family/Request visit [] Outpatient visit [] Follow-up visit [] Physician referral [] Code/Alert [x] Routine visit [] Staff referral [] Actively dying [] Patient sleeping [] Family support [] [] Out of room [] Palliative care [] [] Receiving care in room [] Pre-surgical visit [] Trauma [] Long length of stay [] ICU visit [] Other: Relational/Emotional Strength [] Patient feels connected with others/family/visitors/staff [x] Distress [] Loneliness/isolation [] Abandonment Spirituality of Patient [] Person of Jacklyn [] Attends Pentecostalism of their Jacklyn [] Believes in Prayer [] Reads Bible or Restorationism materials [x] There are Spiritual issues to be addressed 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 Interventions [] Prayer [] Active listening [] Non-anxious presence [] Spiritual/emotional support [] Crisis/trauma care [] Spiritual counseling [] Bereavement support [] Provided bereavement packet [] Provided Bible/devotional materials [] Provided toy/stuffed animal, coloring book to patient or family member [] Provided Communion [] Anointing/Lamar [] Salvation [x] Completed spiritual assessment [] Other: Impact on Illness or Injury [] Angry [] Fearful [] Anxious [] Often cries [] Exhaustion [] Unable to work [] Unable to attend confucianism [] Unable to walk/stand [] Unable to read [] Unable to drive [] Unable to eat/drink [] Unable to sleep [] Unable to be with family [] Patient intubated [] Other: Summary Time spent with patient 5 min
[2023-01-07] MEDS: pantoprazole 40 mg SDV IVP ×2 (09:47→17:44)
--- NOTE | 2023-01-07 11:24 | PM.PN ---
Subjective Subjective: I will start PPN today, patient has not eaten in 72 hours No return of bowel movement No passage of flatus Patient was ambulating in the hallway Richmond catheter has been removed NG tube removed Leukocytosis 12.2 no fever Currently on Zosyn Vitals/I&O/Wt Last Vital Signs Temp 97.6 F 01/07/23 11:10 Pulse 75 01/07/23 11:10 Resp 18 01/07/23 11:10 BP 148/82 01/07/23 11:10 Pulse Ox 93 01/07/23 11:10 O2 Del Method Room Air 01/07/23 11:10 O2 Flow Rate 3 01/05/23 20:08 01/06/23 01/07/23 01/07/23 22:59 06:59 14:59 Intake Total 50 / 1100 1170 / 2270 Balance 50 / 1100 1170 / 2270 Weight last 48 hrs Weight 102.058 kg Physical Exam Narrative: Abdomen soft, positive bowel sound Patient ambulating in the hallway Currently on room air Looks dehydrated GCS 15 Nonfocal neuro exam S1, S2 Urinary Catheter Management: [place]: Cath Placed During This Visit: yes, but has since been removed by the nurse Reason for Continuing Indwelling Catheter: Other Urinary Catheter Date of Insertion: 01/05/23 Urinary Catheter Time of Insertion: 16:45 Date Urinary Catheter Removed: 01/06/23 Time Urinary Catheter Discontinued: 18:42 Data 01/07/23 04:54 01/07/23 04:54 A&P Assessment and plan (1) Complete small bowel obstruction: (2) Dehydration: (3) Leukocytosis: Plan Leukocytosis without fever Likely stress leukemoid reaction Continue Zosyn Bowel obstruction status post intervention adhesiolysis Postop day 2 No return of bowel movement Patient has not eaten in the last 72 hours Start PPN I will discontinue PPN once he starts eating Full code N.p.o. NG tube removed Richmond cath removed Pain well managed Patient is ambulating Discharge in next 24 to 36 hours Attestations Medical Necessity Statement*: Continue medical management Diagnoses Complete small bowel obstruction K56.601 Dehydration E86.0 Leukocytosis D72.829
[2023-01-08] VITALS (12 sets, daily range): BP systolic 136–161; BP diastolic 82–88; PULSE 66–76; RESP 16–18; TEMP 36.6–37.2; O2SAT 92–95
[2023-01-08] MEDS: piperacillin-tazobactam 3.375 GM in sodium chloride 0.9% (plus) 50 ML IV ×2 (00:03→08:10)
[2023-01-08] MEDS: HYDROmorphone 1 mg/mL INJ 1 mL 0.4 MG IVP ×5 (00:11→19:43)
[2023-01-08 04:35] LABS: Basophils # 0.1 10^3/uL (0.0-0.1); Basophils % 0.6 %; Eosinophils # 0.3 10^3/uL (0.0-0.8); Eosinophils % 3.2 %; Hematocrit 28.1 % (42.0-52.0); Hemoglobin 8.8 g/dL (11.7-16.6); Lymphocytes # 1.3 10^3/uL (0.8-4.8); Lymphocytes % 14.6 %; Mean Corpuscular HGB Conc 31.3 g/dL (30.0-36.0); Mean Corpuscular Hemoglobin 20.1 pg (28.0-34.0); Mean Corpuscular Volume 64.2 fl (80-94); Mean Platelet Volume 9.7 fL (7.4-10.4); Monocytes # 0.6 10^3/uL (0.2-0.9); Neutrophils # 6.42 10^3/uL (1.8-7.7); Neutrophils % 74.4 %; Nucleated Red Blood Cells % 0.2 %; Platelet Count 253 10^3/cmm (130-400); Red Blood Count 4.38 10^6/uL (4.1-5.3); Red Cell Distribution Width 15.4 % (12.1-15.1); White Blood Count 8.6 10^3/uL (4.0-10.0)
--- NOTE | 2023-01-08 04:36 | PC.NURSE ---
Pt has had multiple instances of flatus throughout the night.
[2023-01-08 04:54] LABS: Lactate (Lactic Acid level) 0.9 mmol/L (0.5-2.2)
[2023-01-08 05:01] LABS: Anion Gap 11.8 (5-19); Blood Urea Nitrogen 12 mg/dL (8-23); Calcium 8.4 mg/dL (8.5-10.5); Carbon Dioxide 26 mmol/L (22-29); Chloride 104 mmol/L (98-107); Glomerular Filtration Rate 112.5 mL/min (90-130); Glucose 123 mg/dL (65-115); Osmolality Calculated 287 mOsm/kg (285-295); Potassium 3.8 mmol/L (3.5-5.1); Sodium 138 mmol/L (136-145)
[2023-01-08 05:13] LABS: Magnesium 1.9 mg/dL (1.7-2.3); Phosphorus 3.9 mg/dL (2.5-4.5)
--- NOTE | 2023-01-08 06:24 | PM.PN ---
Subjective Subjective: Postoperative day 3 status post exploratory laparotomy lysis of adhesions for small bowel obstruction. Patient is doing well. Has has been passing gas since yesterday night. No nausea or vomit. Ambulating consistently. Vitals/I&O/Wt Last Vital Signs Temp 98.2 F 01/08/23 04:00 Pulse 72 01/08/23 04:00 Resp 16 01/08/23 04:16 BP 136/88 01/08/23 04:00 Pulse Ox 94 01/08/23 04:00 O2 Del Method Room Air 01/08/23 04:00 O2 Flow Rate 3 01/05/23 20:08 01/07/23 01/07/23 01/08/23 14:59 22:59 06:59 Intake Total 1290 / 1290 253.167 / 1543.167 150 / 1693.167 Output Total 425 / 425 Balance 1290 / 1290 253.167 / 1543.167 -275 / 1268.167 Physical Exam Narrative: General: Unremarkable, in good spirits Abdomen: Abdomen is soft appropriately tender to palpation in the norah-incisional area, less distention than yesterday. Urinary Catheter Management: [place]: Cath Placed During This Visit: yes, but has since been removed by the nurse Reason for Continuing Indwelling Catheter: Other Urinary Catheter Date of Insertion: 01/05/23 Urinary Catheter Time of Insertion: 16:45 Date Urinary Catheter Removed: 01/06/23 Time Urinary Catheter Discontinued: 18:42 Data 01/08/23 04:27 01/08/23 04:27 A&P Assessment and plan (1) Complete small bowel obstruction: Plan Postoperative the day 3 status post ex lap with lysis of adhesions for SBO. Patient doing well passing gas, laboratory markers have returned to normal. Patient is consistently ambulating. Patient can be initiated on a clear liquid diet, if tolerating will go to regular diet tomorrow morning, once tolerating patient could be discharge. ? Advance to clear liquid diet ? Encourage ambulation ? Appreciate all other management per hospitalist team. Attestations Medical Necessity Statement*: Patient with resolving SBO after ex lap, will likely require 24 to 48 hours more of hospital stay. Coding Level of Care Code Acute Code for [facility] Diagnoses Complete small bowel obstruction K56.601
[2023-01-08] MEDS: pantoprazole 40 mg SDV IVP (08:13)
--- NOTE | 2023-01-08 11:21 | PM.PN ---
Subjective Subjective: Leukocytosis improved Passing flatus We might advance diet if he starts getting bowel movement today, will give milk of magnesia Patient tolerating diet No abdominal pain Stop PPN Vitals/I&O/Wt Last Vital Signs Temp 98.6 F 01/08/23 11:03 Pulse 73 01/08/23 11:03 Resp 17 01/08/23 11:03 BP 144/82 01/08/23 11:03 Pulse Ox 94 01/08/23 11:03 O2 Del Method Room Air 01/08/23 11:03 O2 Flow Rate 3 01/05/23 20:08 01/07/23 01/08/23 01/08/23 22:59 06:59 14:59 Intake Total 253.167 / 1543.167 150 / 1693.167 541.8 / 541.8 Output Total 425 / 425 Balance 253.167 / 1543.167 -275 / 1268.167 541.8 / 541.8 Physical Exam Narrative: Patient is awake and alert Sitting comfortably in his bed Currently on room air No abdominal pain Bowel sound present Patient eating clear liquid diet GCS 15 Nonfocal neuro exam Urinary Catheter Management: [place]: Cath Placed During This Visit: yes, but has since been removed by the nurse Reason for Continuing Indwelling Catheter: Other Urinary Catheter Date of Insertion: 01/05/23 Urinary Catheter Time of Insertion: 16:45 Date Urinary Catheter Removed: 01/06/23 Time Urinary Catheter Discontinued: 18:42 Data 01/08/23 04:27 01/08/23 04:27 A&P Assessment and plan (1) Leukocytosis: (2) Dehydration: (3) Complete small bowel obstruction: Plan Passing flatus Diet advanced to clear liquid Leukocytosis improved, discontinue antibiotic We might advance further if he gets a bowel movement He might need to go home later today versus tomorrow morning We will give milk of magnesia Patient has pork allergy could not give him heparin or Lovenox, he is on SCDs ambulating very active Low risk for DVT Full code SBO status post adhesiolysis Attestations Medical Necessity Statement*: Discharge later today versus tomorrow morning Coding Level of Care Code Acute Code for Chg Fwd Diagnoses Leukocytosis D72.829 Dehydration E86.0 Complete small bowel obstruction K56.601
[2023-01-08] MEDS: magnesium hydroxide 30 mL UDC 15 ML PO (12:25)
[2023-01-09] VITALS (7 sets, daily range): BP systolic 135–155; BP diastolic 75–97; PULSE 67–77; RESP 16–20; TEMP 36.6–36.8; O2SAT 94–96
[2023-01-09] MEDS: HYDROmorphone 1 mg/mL INJ 1 mL 0.4 MG IVP ×2 (00:28→05:53)
[2023-01-09 04:31] LABS: Basophils # 0.1 10^3/uL (0.0-0.1); Basophils % 0.7 %; Eosinophils # 0.4 10^3/uL (0.0-0.8); Eosinophils % 5.1 %; Hematocrit 28.5 % (42.0-52.0); Lymphocytes # 1.4 10^3/uL (0.8-4.8); Lymphocytes % 18.9 %; Mean Corpuscular HGB Conc 31.6 g/dL (30.0-36.0); Mean Corpuscular Hemoglobin 20.4 pg (28.0-34.0); Mean Corpuscular Volume 64.5 fl (80-94); Mean Platelet Volume 10.7 fL (7.4-10.4); Monocytes # 0.5 10^3/uL (0.2-0.9); Monocytes % 7.1 %; Neutrophils # 5.14 10^3/uL (1.8-7.7); Neutrophils % 67.7 %; Nucleated Red Blood Cells % 0.3 %; Platelet Count 279 10^3/cmm (130-400); Red Blood Count 4.42 10^6/uL (4.1-5.3); Red Cell Distribution Width 15.4 % (12.1-15.1); White Blood Count 7.6 10^3/uL (4.0-10.0)
--- NOTE | 2023-01-09 06:47 | PM.PN ---
Subjective Subjective: Patient is postoperative day 4 status post exploratory laparotomy and lysis of adhesions for small bowel obstruction. Patient is progressing well. Had a bowel movement yesterday. No nausea or vomit. Is consistently ambulating. Vitals/I&O/Wt Last Vital Signs Temp 97.8 F 01/09/23 05:00 Pulse 67 01/09/23 05:00 Resp 20 H 01/09/23 05:53 BP 140/75 01/09/23 05:00 Pulse Ox 96 01/09/23 05:00 O2 Del Method Room Air 01/08/23 19:53 O2 Flow Rate 0 01/08/23 20:00 01/08/23 01/08/23 01/09/23 14:59 22:59 06:59 Intake Total 822.842 / 822.842 480 / 1302.842 120 / 1422.842 Balance 822.842 / 822.842 480 / 1302.842 120 / 1422.842 Physical Exam GI: OTHER: Abdomen is soft and minimally tender in the norah-incisional region nondistended. Surgical incisions healing well yvette in place. Urinary Catheter Management: [place]: Cath Placed During This Visit: yes, but has since been removed by the nurse Reason for Continuing Indwelling Catheter: Other Urinary Catheter Date of Insertion: 01/05/23 Urinary Catheter Time of Insertion: 16:45 Date Urinary Catheter Removed: 01/06/23 Time Urinary Catheter Discontinued: 18:42 Data 01/09/23 04:20 01/08/23 04:27 A&P Assessment and plan (1) Complete small bowel obstruction: Plan 67-year-old male postoperative day 4 status post exploratory laparotomy and lysis of additions for SBO. Excellent postoperative progress. Having bowel function. We will advance diet to regular today. If tolerating diet patient can be discharged. ? Regular diet today ? Cleared for discharge from the general surgery standpoint once tolerating diet ? Follow-up at the surgery clinic in 2 weeks. ? Warning signs given to the patient Attestations Medical Necessity Statement*: Patient recovering from exploratory laparotomy will likely be able to be discharged today. Coding Level of Care Code Acute Code for Chg Fwd Diagnoses Complete small bowel obstruction K56.601
--- NOTE | 2023-01-09 08:34 | P.DS_ITS ---
Discharge Providers Date of Admission: 01/05/23 17:36 Date of Discharge: January 09, 2023 Attending Provider at Admission: Dean Brasher MD Attending Provider at Discharge: Sherman Mendez MD Primary Care Provider: Soy Fenton [facility] Diagnoses at Discharge Discharge Diagnosis (1) Complete small bowel obstruction: Status: Acute Reason for Visit Reason for Visit: upper stomach pain Hospital Course Hospital Course 67-year-old male who was admitted to the hospital for chief complaint of recurrent nausea, abdominal distention and pain, in the ER he was diagnosed with closed-loop bowel obstruction, he was taken to the OR right away by the surgeon status post adhesiolysis, patient was started on PPN next day however NG tube was removed, he was able to pass flatus, diet was advanced to clear liquids, he started having bowel movement, he kept ambulating throughout his hospitalization after surgery, he does not carry any significant past medical history abdominal surgeries, his white count improved which was secondary to stress leukemoid r eaction he was kept on Zosyn until the day of discharge. Hemodynamically remained stable, no fever at all. Before his discharge she is able to tolerate diet, had 1 bowel movement, ambulating without any issues Physical Exam Narrative: Patient looks well-hydrated GCS 15 Abdomen soft Bowel sound present Normal hemodynamics S1, S2 Nonfocal neuro exam Urinary Catheter Management: [place]: Cath Placed During This Visit: yes, but has since been removed by the nurse Reason for Continuing Indwelling Catheter: Other Urinary Catheter Date of Insertion: 01/05/23 Urinary Catheter Time of Insertion: 16:45 Date Urinary Catheter Removed: 01/06/23 Time Urinary Catheter Discontinued: 18:42 Discharge Data Studies Completed and Pending Completed Studies During Hospitalization Category Date Time Status CT abdomen pelvis w con* [id number] Stat Cat Scan 01/05/23 12:36 Completed Radiology Impressions Abdomen/Pelvis CT 01/05/23 12:36 IMPRESSION: 1. High-grade closed loop small bowel obstruction with transition point in the left lower quadrant. The cause of obstruction is not apparent. No sign of bowel necrosis. 2. Moderate splenic enlargement. 3. Incidental findings above. ADDENDUM: 01/05/23 1333 THIS REPORT CONTAINS FINDINGS THAT MAY BE CRITICAL TO PATIENT CARE. The findings were verbally communicated via telephone conference with Cruz Castro at 1:31 PM CDT on 01/05/2023. The findings were acknowledged and understood. Laboratory Results WBC 7.6 10^3/uL (4.0-10.0) 01/09/23 04:20 RBC 4.42 10^6/uL (4.1-5.3) 01/09/23 04:20 Hgb 9.0 g/dL (11.7-16.6) L 01/09/23 04:20 Hct 28.5 % (42.0-52.0) L 01/09/23 04:20 MCV 64.5 fl (80-94) L 01/09/23 04:20 MCH 20.4 pg (28.0-34.0) L 01/09/23 04:20 MCHC 31.6 g/dL (30.0-36.0) 01/09/23 04:20 RDW 15.4 % (12.1-15.1) H 01/09/23 04:20 Plt Count 279 10^3/cmm (130-400) 01/09/23 04:20 MPV 10.7 fL (7.4-10.4) H 01/09/23 04:20 Neut % (Auto) 67.7 % 01/09/23 04:20 Lymph % (Auto) 18.9 % 01/09/23 04:20 Sutter % (Auto) 7.1 % 01/09/23 04:20 Eos % (Auto) 5.1 % 01/09/23 04:20 Baso % (Auto) 0.7 % 01/09/23 04:20 Neut # (Auto) 5.14 10^3/uL (1.8-7.7) 01/09/23 04:20 Lymph # (Auto) 1.4 10^3/uL (0.8-4.8) 01/09/23 04:20 Sutter # (Auto) 0.5 10^3/uL (0.2-0.9) 01/09/23 04:20 Eos # (Auto) 0.4 10^3/uL (0.0-0.8) 01/09/23 04:20 Baso # (Auto) 0.1 10^3/uL (0.0-0.1) 01/09/23 04:20 Nucleated RBC % (auto) 0.3 % 01/09/23 04:20 Nucleated RBCs # 0.0 /100WBC 01/09/23 04:20 Sodium 138 mmol/L (136-145) 01/08/23 04:27 Potassium 3.8 mmol/L (3.5-5.1) 01/08/23 04:27 Chloride 104 mmol/L (98-107) 01/08/23 04:27 Carbon Dioxide 26 mmol/L (22-29) 01/08/23 04:27 Anion Gap 11.8 (5-19) 01/08/23 04:27 BUN 12 mg/dL (8-23) 01/08/23 04:27 Creatinine 0.7 mg/dL (0.7-1.2) 01/08/23 04:27 GFR Calculation 112.5 mL/min (90-130) 01/08/23 04:27 Glucose 123 mg/dL (65-115) H 01/08/23 04:27 Calculated Osmolality 287 mOsm/kg (285-295) 01/08/23 04:27 Lactic Acid 1.0 mmol/L (0.5-2.2) 01/05/23 13:52 Lactate 0.9 mmol/L (0.5-2.2) 01/08/23 04:27 Calcium 8.4 mg/dL (8.5-10.5) L 01/08/23 04:27 Phosphorus 3.9 mg/dL (2.5-4.5) 01/08/23 04:27 Magnesium 1.9 mg/dL (1.7-2.3) 01/08/23 04:27 Total Bilirubin 0.8 mg/dL (0.15-1.2) 01/05/23 11:49 AST 15 U/L (0-40) 01/05/23 11:49 ALT 21 U/L (0-41) 01/05/23 11:49 Alkaline Phosphatase 67 U/L (40-130) 01/05/23 11:49 Troponin T Baseline 9 ng/L (0-15) 01/05/23 11:49 Troponin T 120 Minute 6.25 ng/L (0-15) 01/05/23 13:52 Delta Troponin T -2.75 ABS# (0-10) L 01/05/23 13:52 Troponin T Hi Sens 6Hr 6.01 ng/L (0-15) 01/05/23 20:20 Troponin T Hi Sens 6Hr Delta -2.99 ng/L (0-12) L 01/05/23 20:20 C-Reactive Protein 11.7 mg/L (0.0-4.9) H 01/06/23 02:20 Total Protein 7.6 g/dL (6.6-8.7) 01/05/23 11:49 Albumin 4.7 g/dL (3.5-5.2) 01/05/23 11:49 Globulin 2.9 g/dL (1.3-4.6) 01/05/23 11:49 Lipase 22 U/L (13-60) 01/05/23 11:49 Vitamin B12 569 pg/mL (232-1245) 01/05/23 16:38 Blood Type A Positive 01/05/23 16:38 Rho(D) Type Positive 01/05/23 16:38 Antibody Screen Negative 01/05/23 16:38 Vitals Last Vital Signs Temp 98.2 F 01/09/23 07:31 Pulse 77 01/09/23 07:41 Resp 18 01/09/23 07:41 BP 155/97 01/09/23 07:31 Pulse Ox 94 01/09/23 07:41 O2 Del Method Room Air 01/09/23 07:41 O2 Flow Rate 0 01/08/23 20:00 Discharge Plan Discharge Patient Disposition: Home Condition: Stable Prescriptions: New tramadol 50 mg tablet 50 mg PO Q8H PRN (Reason: pain) Qty: 14 0RF sennosides-docusate sodium [Senna-S] 8.6-50 mg tablet 1 tab-cap PO DAILY Qty: 30 0RF lisinopril 5 mg tablet 5 mg PO DAILY Qty: 90 3RF Continued garlic 100 mg Tablet 300 mg PO DAILY tramadol 50 mg tablet 50 mg PO Q6H PRN (Reason: Pain) beta carotene 30 mg Capsule 30 mg PO DAILY selenium 200 mcg Tablet 200 mcg PO DAILY Vitamin C 500 mg Tablet 4,000 mg PO DAILY saw palmetto 160 mg Capsule 1,120 mg PO DAILY Rx Instructions: give with meal/snack Acidophilus Capsule 20,000 mmu cells PO DAILY Green Tea Capsule 2 cap PO DAILY Cinnamon 500 mg Capsule 3,500 mg PO DAILY alfalfa 250 mg Tablet 1,750 mg PO DAILY coconut oil 1,000 mg Capsule 2,000 mg PO DAILY Prostate Health 160-100-100 mg-unit-mcg Tablet 3 tab PO DAILY bharath root extract 15 mg Tablet,Chewable 45 mg PO DAILY Discontinued meloxicam 7.5 mg tablet 7.5 mg PO DAILY Discharge Orders: Discharge Order (Routine); Ordered 01/09/23 Ordered By: Sherman Mendez Referrals: Soy Fenton, JUDY- [Primary Care Provider] - 01/15/23 10:30 am Discharge Diet: GI Soft Discharge Activity: Increase activity as tolerated Patient Instructions: Opioid Safety Activity Restrictions/Additional Instructions: You can advance her diet gradually, try with mechanical soft/GI soft diet for 2 days and then advance gradually For your blood pressure I have added lisinopril please maintain a blood pressure log so you could show it to your primary care doctor you will get lisinopril 5 mg daily You can use tramadol on as-needed basis Discharge Attestations Time Spent in Discharge Care*: greater than 30 min Quality Metrics Clinical Quality Measures [ No reported AMI, CVA or VTE this stay] Coding Level of Care Code Acute Code for Chg Fwd Diagnoses Complete small bowel obstruction K56.601
== END 2023-01-09 11:07 | disposition home or self-care (01) | DRG 337 ==
LOC: ER 15:18 → OR 15:41 → MEDSURG 19:19
PROVIDERS: Admitting Provider Surgery; Emergency Provider Emergency Medicine; PCP Nurse Practitioner Family; Visit Provider Internal Medicine
PROC: (CPT 49000; principal; 2023-01-05 16:00)
DX: K56.52 Intestinal adhesions [bands] with complete obstruction (principal); Z79.891 Long term (current) use of opiate analgesic; D56.3 Thalassemia minor; E86.0 Dehydration
CPT/HCPCS: 12345; 36415; 51702; 74177; 80048; 80053; 82607; 83605; 83690; 83735; 84100; 84484; 85025; 86140; 86850; 86900; 93005; 99255; C9113; J0330; J1100; J1170; J1885; J2270; J2405; J2543; J2704; J2710; J3010; J3490; J7042; Q9967

== ENCOUNTER → 2023-01-16 13:05 | Outpatient (BNVA) | payer MEDICARE, SELFPAY | PROVIDERS: PCP Nurse Practitioner Family; Visit Provider Surgery | DX: Z87.19 Personal history of other diseases of the digestive system (principal) | CPT/HCPCS: 99024 ==

== ENCOUNTER → 2023-01-24 08:52 | Outpatient (BNVA) | payer MEDICARE, SELFPAY | PROVIDERS: PCP Nurse Practitioner Family; Visit Provider Surgery | DX: Z87.19 Personal history of other diseases of the digestive system (principal); Z98.890 Other specified postprocedural states | CPT/HCPCS: 99024 ==

== ENCOUNTER → 2023-07-04 11:47 | Outpatient (BNVA) | payer MEDICARE, SELFPAY | PROVIDERS: PCP Nurse Practitioner Family; Visit Provider Surgery | DX: K46.9 Unspecified abdominal hernia without obstruction or gangrene (principal) | CPT/HCPCS: 99214 ==

== ENCOUNTER → 2023-07-24 14:58 | Outpatient (BNVA) | payer MEDICARE, SELFPAY | PROVIDERS: PCP Nurse Practitioner Family; Visit Provider Family Medicine | DX: Z13.220 Encounter for screening for lipoid disorders (principal); Z13.6 Encounter for screening for cardiovascular disorders; Z13.1 Encounter for screening for diabetes mellitus; I10 Essential (primary) hypertension; D56.3 Thalassemia minor; R73.9 Hyperglycemia, unspecified | CPT/HCPCS: 80053; 80061; 83036; 85007; 85027 ==

== ENCOUNTER 2023-08-04 05:30 | Day surgery (SDC) | payer MEDICARE, SELFPAY ==
[2023-08-04] VITALS (12 sets, daily range): BP systolic 103–141; BP diastolic 66–82; PULSE 55–66; RESP 14–20; TEMP 36.2–36.6; O2SAT 92–100
[2023-08-04] MEDS: sodium chloride 0.9% 1,000 ML 30 ML IV (06:26)
--- NOTE | 2023-08-04 06:32 | P.HPUD_ITS ---
Surgery/Procedure H&P Update DATE OF PROCEDURE: August 04, 2023 DATE H&P PERFORMED: 07/04/23 H&P UPDATE INFORMATION: I have reviewed H&P completed within last 30 days, I have examined patient prior to procedure, No changes to prior documentation and H&P is in [facility] EMR on date indicated PLANNED PROCEDURE: Operation Date: 08/04/23 07:00 Proposed Procedures p 47250 lap ventral incisional hernia repair with mesh K46.9(Not Applicable) - Dean Brasher MD
[2023-08-04] MEDS: ceFAZolin 2,000 MG in sodium chloride 0.9% (plus) 50 ML 100 MG IV (07:12)
--- NOTE | 2023-08-04 07:34 | P.ANESASSM_ITS ---
Pre-Anesthetic Assessment Height/Weight: Height 1.78 m Temp Pulse Resp BP Pulse Ox O2 Del Method 97.9 F 66 18 141/82 97 Room Air 08/04/23 06:03 08/04/23 06:03 08/04/23 06:03 08/04/23 06:03 08/04/23 06:03 08/04/23 06:08 Operation Date: 08/04/23 07:00 Proposed Procedures p 68741 lap ventral incisional hernia repair with mesh K46.9(Not Applicable) - Dean Brasher MD Familial anesthetic complications: none Was Beta Zechariah taken within 24 hours: N/A Was Clonidine taken within 24 hours: N/A Last intake: Intake Last Liquid Date 08/03/23 Last Liquid Time 21:30 Last Solid Date 08/03/23 Last Solid Time 20:00 Last Intake: 07:00 Social No alcohol and No tobacco Exam alert and oriented x 3 Airway Submandibular: within normal limits Cervical ROM: within normal limits Mallampati: Class II Dentition: full Comments: Comments: full crum History/ROS No significant history except as noted Pulmonary None reported CV/HEM Murmur thalassemia minor None reported Hepatic None reported GI None reported Metabolic Morbid Obesity [facility] None reported Neuropsych None reported Anesthetic Plan ASA status: 2 Anesthesia: Anesthesia Evaluation and General Risk of > 500 ml blood loss (7ml/kg in children): No Medications/Allergies Home Medications Medication Instructions Recorded Confirmed Last Taken Type Lactobacillus acidophilus 20,000 mmu cells PO DAILY 01/05/23 07/31/23 01/05/23 History (Acidophilus capsule) alfalfa 250 mg tablet 1,750 mg PO DAILY 01/05/23 07/31/23 01/05/23 History ascorbic acid (vitamin C) 500 mg 4,000 mg PO DAILY 01/05/23 07/31/23 01/05/23 History tablet (Vitamin C) beta carotene 30 mg capsule 30 mg PO DAILY 01/05/23 07/31/23 01/05/23 History cinnamon bark 500 mg capsule 3,500 mg PO DAILY 01/05/23 07/31/23 01/05/23 History (Cinnamon) coconut oil 1,000 mg capsule 2,000 mg PO DAILY 01/05/23 07/31/23 01/05/23 History garlic 100 mg tablet 300 mg PO DAILY 01/05/23 07/31/23 01/05/23 History bharath root extract 15 mg chewable 45 mg PO DAILY 01/05/23 07/31/23 01/05/23 History tablet green tea leaf extract 2 cap PO DAILY 01/05/23 07/31/23 01/05/23 History saw palm 160 mg-vit E 100 3 tab PO DAILY 01/05/23 07/31/23 01/05/23 History unit-selen 100 jup-mxcz-covhrd-pygeum tablet (Prostate [employer]) saw palmetto 160 mg capsule 1,120 mg PO DAILY 01/05/23 07/31/23 01/05/23 History selenium 200 mcg tablet 200 mcg PO DAILY 01/05/23 07/31/23 01/05/23 History potassium chloride 20 mEq oral 20 meq PO DAILY 07/04/23 07/31/23 Unknown History packet Allergies Allergy/AdvReac Type Severity Reaction Status Date / Time TIFFANY Inhibitors Allergy cough Verified 07/24/23 14:04 pork derived (porcine) Allergy Unknown Verified 07/24/23 14:04 shellfish derived Allergy Unknown Verified 07/24/23 14:04 Current Medications Generic Name Dose Route Start Last Admin Trade Name Freq PRN Reason Stop Dose Admin Sodium Chloride 1,000 mls @ 30 mls/hr 08/04/23 06:00 08/04/23 06:26 Sodium Chloride 0.9% IV 08/05/23 05:59 30 mls/hr .Q24H MISHA Administration PFSH Anesthesia Medical History (Updated 07/24/23 @ 14:37 by Neelam Pappas MD) Hx of small bowel obstruction Surgical History (Updated 07/24/23 @ 14:26 by Neelam Pappas MD) History of right knee joint replacement Social History Smoking and tobacco/nicotine status: never used tobacco/nicotine Data Anesthesia Cardiac Studies: No Data to Display
[2023-08-04] MEDS: BUPivacaine 0.5% INJ 30 mL INJECTION (08:04)
[2023-08-04] MEDS: lidocaine-epi 1% 20 mL INJ INJECTION (08:04)
--- NOTE | 2023-08-04 08:29 | P.OP_ITS ---
Operative Report Date of procedure: August 04, 2023 Pre-op diagnosis: Ventral incisional hernia Post-op diagnosis: Same Post-op findings: Ventral incisional hernia measuring 2 cm, extensive additions from the omentum to the anterior abdominal wall Procedure done: Laparoscopic repair of ventral incisional hernia with mesh, lysis of additions Specimens removed/disposition: None Surgeon: Dean Brasher MD Consumer Marketing Analyst: [place] OR Staff Estimated blood loss: 5cc Complications: none apparent Brief History: 67-year-old male with history of exploratory laparotomy 6 months ago who developed a ventral incisional hernia measuring 2 cm, after discussion of all risk and benefits with side to proceed with laparoscopic repair with mesh. Procedure: Patient was brought into the OR. General anesthesia was given. The abdomen was prepped and draped in the usual sterile fashion. Timeout was done. The abdomen was accessed via Optiview technique with a 5 mm trocar on the left upper quadrant. Initial laparoscopy showed no evidence of visceral injury during entry. Additional 12 mm trocar was placed in the left flank and a 5 mm trocar in the left lower quadrant under direct visualization. Laparoscopy revealed a 2 cm ventral incisional hernia at the level of the umbilicus, there was no significant contents in the hernia, superior to the hernia in the upper abdomen there was extensive additions from the omentum to the anterior abdominal wall, lysis of additions was indicated in order to create a safe landing zone for the mesh, I proceeded to carefully take down the adhesions from the omentum to anterior abdominal wall using LigaSure. Once the omentum was completely taken down I proceeded to make sure the landing zone for the mesh, this point it was apparent that we will need to take down the initial 5 cm of the falciform ligament in order to accommodate the mesh, I did they are using LigaSure. On the inferior aspect I also removed the fat surrounding the medial umbilical ligaments to allow a safe landing zone for the mesh. I then proceeded to insert 6 inches Ventralight mesh. The mesh positioning system was retrieved with a Jung-Neptali suture passer via a supraumbilical incision, these place the mesh apposed to the abdominal wall and centered over the hernia defect. I then proceeded to tack the mesh with absorbable tacker's in a double crown configuration. The exoskeleton of the mesh was then removed and this component was taken out of the abdomen via the 12 mm port. Additional tacks were placed to ensure adequate position of the mesh to the anterior abdominal wall. Once the mesh was in position depression the abdomen was dropped to ensure that there was no bleeding and that the mesh laid flat. After this I proceeded to remove the 12 mm trocar and these fascia was closed with a #0 Vicryl using a Jung- Neptali suture passer under direct visualization. I then proceeded to remove the left lower quadrant trocar, the left upper quadrant trocar was used to evacuate the pneumoperitoneum and subsequently removed. Local anesthesia was infiltrated in all wounds, the wounds were closed in layers using #4-0 Monocryl for the skin and Dermabond was applied. At the end of the procedure all counts were correct, the patient tolerated well the procedure and was transferred to the PACU in stable condition.
[2023-08-04] MEDS: ondansetron 2 mg/ML SDV 2 mL 4 MG IVP (09:08)
[2023-08-04] MEDS: oxyCODONE 5 mg IR Tab/Cap PO (09:42)
--- NOTE | 2023-08-04 18:47 | ANE.PACU2 ---
Inpatient post-anesthesia follow up: Airway intact: Yes Vital signs: Temperature 97.9 F Pulse Rate 62 Respiratory Rate 18 Blood Pressure 125/82 Pulse Oximetry 95 Oxygen Delivery Me thod Room Air Oxygen Flow Rate 6 Fraction of Inspir ed Oxygen Hydration adequate: Yes Nausea and vomiting: No Pain level: 2 Mental status: Baseline
== END 2023-08-04 10:10 | disposition home or self-care (01) ==
PROVIDERS: PCP Family Medicine; Visit Provider Surgery
PROC: 0WQF4ZZ Repair Abdominal Wall, Percutaneous Endoscopic Approach (ICD-10-PCS; CPT 49591; principal; 2023-08-04 07:00)
PROC: (CPT 49591; 2023-08-04 07:00)
DX: K43.2 Incisional hernia without obstruction or gangrene (principal)
CPT/HCPCS: 49591; J0131; J0330; J0690; J1100; J2405; J2704; J2710; J3010; J3490; J7030

== ENCOUNTER → 2023-08-19 07:56 | Outpatient (BNVA) | payer MEDICARE, SELFPAY | PROVIDERS: PCP Family Medicine; Visit Provider Surgery | DX: Z98.890 Other specified postprocedural states (principal); Z87.19 Personal history of other diseases of the digestive system | CPT/HCPCS: 99024 ==

== ENCOUNTER 2023-10-25 12:46 | Emergency (ER) | payer MEDICARE, SELFPAY ==
--- NOTE | 2023-10-25 12:49 | XRR_ITS ---
PROCEDURE INFORMATION: Exam: XR Right Shoulder Exam date and time: 10/25/2023 2:00 PM Age: 68 years old Clinical indication: Pain; Shoulder; Right; Additional info: Shoulder pain TECHNIQUE: Imaging protocol: Radiologic exam of the right shoulder. Views: 2 or more views. COMPARISON: No relevant prior studies available. FINDINGS: Bones/joints: Demineralization of the visualized bones. Moderate degenerative disease of the AC joint with small joint bodies at its cranial aspect. Narrowing of the subacromial distance with cystic changes of the greater tuberosity consistent with chronic rotator cuff tear. Mild degenerative disease of the glenohumeral joint. Soft tissues: Normal. Other findings: Right carotid calcifications. XR/XR shoulder RT min 2V* [id number] IMPRESSION: No acute fracture or dislocation.
[2023-10-25 13:15] VITALS: BP 138/82; PULSE 60; RESP 17; TEMP 36.6; O2SAT 96; BMI 33.0
[2023-10-25] MEDS: dexamethasone 10 mg/mL INJ 8 MG IM (14:29)
[2023-10-25] MEDS: methocarbamol 750 mg Tablet PO (14:29)
[2023-10-25] MEDS: ketorolac 60 mg/2 mL INJ IM (14:29)
--- NOTE | 2023-10-25 14:44 | ED_ITS ---
Documented by User: GRAZYNA Scott 10/25/23 14:47 HPI - Extremity Problem General: Chief complaint: Extremity Injury, Upper Stated complaint: rt shoulder pain Time Seen by Provider: 10/25/23 13:48 Source: patient Mode of arrival: ambulatory Limitations: no limitations History of Present Illness: Patient is a 68-year-old male presenting to the emergency department complaining of right shoulder pain for the past few days. Patient notes initial injury occurred months ago while he was lifting a heavy sack, though pain at that time subsided on its own. He notes the pain came back without inciting event this time, and is to the posterior right shoulder. He denies any history of surgery to that shoulder. He does note pain radiates down his entire arm and feels like a nerve is pinched. He is denying any breathing difficulties or chest pain. No trauma to the shoulder, history of dislocations, or other concerning symptoms reported at this time. Has been taken Tylenol that only takes the edge off, per patient. MD Complaint: joint pain Onset (ago): day(s) Location: right Radiation: distal Relieving factors: medication ( Takes the edge off ) Associated symptoms: Deny chest pain, fever(s) or rash Review of Systems General: Reports: 10 or more systems reviewed and unremarkable except in HPI and below Const: Denies: fever(s), chills or fatigue Eyes: Denies: change in vision ENMT: Denies: throat pain, ear or mastoid pain or nasal discharge Card: Denies: chest pain, palpitations, swelling of feet/ankles or lightheadedness Resp: Denies: dyspnea, productive cough or wheezing GI: Denies: abdominal pain, nausea, vomiting, diarrhea or constipation : Denies: flank pain, difficulty urinating, dysuria or urinary frequency Musc: Reports: extremity pain and joint pain; Denies: neck pain or back pain Skin/Breast: Denies: rash Neuro: Denies: headache(s), numbness in extremities or weakness in extremities PFS ED PFSH: Medical History Hx of small bowel obstruction Surgical History History of hernia surgery 08/04/23 Dr Benalcazar Laparoscopic repair of ventral incisional hernia with mesh, lysis of additions History of right knee joint replacement Social History Smoking and tobacco/nicotine status: never used tobacco/nicotine Physical Exam Const: COMMON NORMALS: no acute distress, patient oriented x3 and no limitations GENERAL APPEARANCE: cooperative, comfortable and well developed ORIENTATION/CONSCIOUSNESS: Yes awake, Yes oriented to person, Yes oriented to place and Yes oriented to time HENMT: COMMON NORMALS: normocephalic, atraumatic and hearing grossly normal bilaterally HEAD & SCALP: normocephalic and atraumatic Eye: COMMON NORMALS: Equal, round and reactive pupils present, EOMs intact bilaterally and conjunctivae normal CONJUNCTIVA: Yes conjunctivae normal PUPIL: Yes Equal, round and reactive pupils present Neck/C-Spine: COMMON NORMALS: full ROM, supple and no JVD Resp: COMMON NORMALS: normal respiratory effort, No retractions, No use of accessory muscles and clear to auscultation bilaterally AUSCULTATION: clear to auscultation bilaterally Cardio: COMMON NORMALS: no JVD, regular rate, regular rhythm, No clicks present (Cardio), No murmurs present (Cardio) and No rub (Cardio) RATE: regular rate RHYTHM: regular rhythm Extremity: COMMON NORMALS: normal to inspection, full ROM and capillary refill normal NARRATIVE EXTREMITY EXAM: Very mild tenderness palpation about the right scapular spine. No overlying skin changes such as deformities or bruising. Full range of motion, limited pain noted. Special testing of the right shoulder negative. Distal neurovascular exam is intact Neuro: COMMON NORMALS: patient oriented x3, moves all extremities, no focal motor deficits and no sensory deficits noted SENSORIUM/ORIENTATION: Yes oriented to person, Yes oriented to place and Yes oriented to time Psych: COMMON NORMALS: mental status grossly normal and Normal thought process present THOUGHT PROCESS: Normal thought process present Skin: COMMON NORMALS: no rashes or lesions noted GENERAL SKIN EXAM: no rashes or lesions noted Course Vital Signs: Vital signs: Vital Signs Temperature 98 F 10/25/23 14:56 Pulse Rate 59 L 10/25/23 14:56 Respiratory Rate 16 10/25/23 14:56 Blood Pressure 137/86 10/25/23 14:56 Pulse Oximetry 98 10/25/23 14:56 Oxygen Delivery Me thod Room Air 10/25/23 13:15 MDM - Extremity (Nontraumatic) Medical Decision Making Patient seen due to right shoulder pain, history of similar. Has been taking Tylenol which only takes the edge off, per patient. X-ray did not demonstrate any acute fractures or dislocations. Clinically patient is presenting with potential inflammation around the nerve, and notes improvement after giving him steroid shot in the emergency department. He was also given a shot of Toradol and a muscle relaxer. He notes that he is pain-free at this time and I will send home prescriptions with this and encouraged him to follow-up with primary care for any further incidences of pain for potential MRI. Instructed him to u se ice and heat and perform gentle range of motion exercises. Patient agrees with plan and reasons to return discussed. Patient discharged home. Lab Data Radiology Impressions Shoulder X-Ray 10/25/23 12:49 IMPRESSION: No acute fracture or dislocation. All radiology interpretation(s) finalized by discharge Discharge Plan Discharge Patient Disposition: Home Clinical Impression: Strain of shoulder, right Qualifiers: Encounter type: initial encounter Qualified Code(s): S46.911A - Strain of unspecified muscle, fascia and tendon at shoulder and upper arm level, right arm, initial encounter Condition: Stable Prescriptions: New prednisone 20 mg tablet 60 mg PO ONCE 5 Days Qty: 15 0RF ketorolac 10 mg tablet 10 mg PO Q8H PRN (Reason: pain) Qty: 15 0RF tizanidine 4 mg tablet 4 mg PO Q8H PRN (Reason: muscle spasticity) Qty: 15 0RF No Action potassium chloride 20 mEq packet 20 meq PO DAILY garlic 100 mg Tablet 300 mg PO DAILY beta carotene 30 mg Capsule 30 mg PO DAILY selenium 200 mcg Tablet 200 mcg PO DAILY ascorbic acid (vitamin C) [Vitamin C] 500 mg Tablet 4,000 mg PO DAILY saw palmetto 160 mg Capsule 1,120 mg PO DAILY Rx Instructions: give with meal/snack Acidophilus Capsule 20,000 mmu cells PO DAILY green tea leaf extract Capsule 2 cap PO DAILY cinnamon bark [Cinnamon] 500 mg Capsule 3,500 mg PO DAILY alfalfa 250 mg Tablet 1,750 mg PO DAILY coconut oil 1,000 mg Capsule 2,000 mg PO DAILY Prostate Health 160-100-100 mg-unit-mcg Tablet 3 tab PO DAILY bharath root extract 15 mg Tablet,Chewable 45 mg PO DAILY oxycodone 5 mg tablet 5 mg PO Q8H PRN (Reason: pain) Qty: 14 0RF Discharge Orders: Discharge ED (Routine); Ordered 10/25/23 Ordered By: Dean Saucedo Referrals: Neelam Pappas MD [Primary Care Provider] - Discharge Diet: Usual diet Discharge Activity: Increase activity as tolerated Patient Instructions: Shoulder Pain (ED) Activity Restrictions/Additional Instructions: Prednisone as prescribed. Toradol. Muscle relaxer. Follow-up with primary care for any further incidents of pain per further evaluation and potential MRI. Gentle range of motion exercises as tolerated. Ice/heat for added relief. Coding Level of Care Code ED Pin Sticker for Chg Fwd Documented by User: Arthur Kirby DO 10/25/23 15:28 HPI - Extremity Problem General: Chief complaint: Extremity Injury, Upper Stated complaint: rt shoulder pain Time Seen by Provider: 10/25/23 13:48 [facility] PFSH: Medical History Hx of small bowel obstruction Surgical History History of hernia surgery 08/04/23 Dr Brasher Laparoscopic repair of ventral incisional hernia with mesh, lysis of additions History of right knee joint replacement Social History Smoking and tobacco/nicotine status: never used tobacco/nicotine Course Vital Signs: Vital signs: Vital Signs Temperature 98 F 10/25/23 14:56 Pulse Rate 59 L 10/25/23 14:56 Respiratory Rate 16 10/25/23 14:56 Blood Pressure 137/86 10/25/23 14:56 Pulse Oximetry 98 10/25/23 14:56 Oxygen Delivery Me thod Room Air 10/25/23 13:15 MDM - Extremity (Nontraumatic) Medical Decision Making Patient seen due to right shoulder pain, history of similar. Has been taking Tylenol which only takes the edge off, per patient. X-ray did not demonstrate any acute fractures or dislocations. Clinically patient is presenting with potential inflammation around the nerve, and notes improvement after giving him steroid shot in the emergency department. He was also given a shot of Toradol and a muscle relaxer. He notes that he is pain-free at this time and I will send home prescriptions with this and encouraged him to follow-up with primary care for any further incidences of pain for potential MRI. Instructed him to use ice and heat and perform gentle range of motion exercises. Patient agrees with plan and reasons to return discussed. Patient discharged home. Chart reviewed and patient discussed with midlevel. Agree with assessment and plan. Lab Data Radiology Impressions Shoulder X-Ray 10/25/23 12:49 IMPRESSION: No acute fracture or dislocation. Discharge Plan Discharge Patient Disposition: Home Clinical Impression: Strain of shoulder, right Qualifiers: Encounter type: initial encounter Qualified Code(s): S46.911A - Strain of unspecified muscle, fascia and tendon at shoulder and upper arm level, right arm, initial encounter Condition: Stable Prescriptions: New prednisone 20 mg tablet 60 mg PO ONCE 5 Days Qty: 15 0RF ketorolac 10 mg tablet 10 mg PO Q8H PRN (Reason: pain) Qty: 15 0RF tizanidine 4 mg tablet 4 mg PO Q8H PRN (Reason: muscle spasticity) Qty: 15 0RF No Action potassium chloride 20 mEq packet 20 meq PO DAILY garlic 100 mg Tablet 300 mg PO DAILY beta carotene 30 mg Capsule 30 mg PO DAILY selenium 200 mcg Tablet 200 mcg PO DAILY ascorbic acid (vitamin C) [Vitamin C] 500 mg Tablet 4,000 mg PO DAILY saw palmetto 160 mg Capsule 1,120 mg PO DAILY Rx Instructions: give with meal/snack Acidophilus Capsule 20,000 mmu cells PO DAILY green tea leaf extract Capsule 2 cap PO DAILY cinnamon bark [Cinnamon] 500 mg Capsule 3,500 mg PO DAILY alfalfa 250 mg Tablet 1,750 mg PO DAILY coconut oil 1,000 mg Capsule 2,000 mg PO DAILY Prostate Health 160-100-100 mg-unit-mcg Tablet 3 tab PO DAILY bharath root extract 15 mg Tablet,Chewable 45 mg PO DAILY oxycodone 5 mg tablet 5 mg PO Q8H PRN (Reason: pain) Qty: 14 0RF Discharge Orders: Discharge ED (Routine); Ordered 10/25/23 Ordered By: Dean Saucedo Referrals: Neelam Pappas MD [Primary Care Provider] - Discharge Diet: Usual diet Discharge Activity: Increase activity as tolerated Patient Instructions: Shoulder Pain (ED) Activity Restrictions/Additional Instructions: Prednisone as prescribed. Toradol. Muscle relaxer. Follow-up with primary care for any further incidents of pain per further evaluation and potential MRI. Gentle range of motion exercises as tolerated. Ice/heat for added relief. Coding Level of Care Code ED Pin Sticker for Elizabeth Jo
[2023-10-25 14:56] VITALS: BP 137/86; PULSE 59; RESP 16; TEMP 36.6; O2SAT 98
== END 2023-10-25 14:57 | disposition home or self-care (01) ==
PROVIDERS: Emergency Provider Physician Assistant; PCP Family Medicine
DX: S46.911A Strain of unspecified muscle, fascia and tendon at shoulder and upper arm level, right arm, initial encounter (principal); X50.0XXA Overexertion from strenuous movement or load, initial encounter
CPT/HCPCS: 73030; 96372; 99284; J1100; J1885

== ENCOUNTER 2024-01-05 06:00 | Outpatient (RCR) | payer MEDICARE, SELFPAY | END 2024-01-07 23:59 | disposition home or self-care (01) | LOC: MPT 06:00 | PROVIDERS: PCP Family Medicine; Visit Provider Orthopaedic Surgery Adult Reconstructive Orthopaedic Surgery | DX: M25.552 Pain in left hip (principal) | CPT/HCPCS: 97162 ==

== ENCOUNTER 2024-02-08 06:00 | Outpatient (RCR) | payer MEDICARE, SELFPAY | END 2024-03-08 23:59 | disposition home or self-care (01) | LOC: MPT 06:00 | PROVIDERS: PCP Family Medicine; Visit Provider Orthopaedic Surgery Adult Reconstructive Orthopaedic Surgery | DX: M25.552 Pain in left hip (principal) | CPT/HCPCS: 97110 ==

== ENCOUNTER 2024-03-09 06:00 | Outpatient (RCR) | payer MEDICARE, SELFPAY | END 2024-04-06 23:59 | disposition home or self-care (01) | LOC: MPT 06:00 | PROVIDERS: PCP Family Medicine; Visit Provider Orthopaedic Surgery Adult Reconstructive Orthopaedic Surgery | DX: M25.552 Pain in left hip (principal) | CPT/HCPCS: 97110 ==

== ENCOUNTER → 2024-11-02 08:34 | Outpatient (BNVA) | payer MEDICARE, SELFPAY | PROVIDERS: PCP Family Medicine; Visit Provider Family Medicine | DX: I10 Essential (primary) hypertension (principal); D56.3 Thalassemia minor; M25.50 Pain in unspecified joint; Z86.19 Personal history of other infectious and parasitic diseases | CPT/HCPCS: 80053; 80061; 85025; 85651; 86038; 86140; 86618; 86666; 86757 ==

== ENCOUNTER → 2024-11-11 08:53 | Outpatient (BNVA) | payer MEDICARE, SELFPAY | PROVIDERS: PCP Family Medicine; Visit Provider Family Medicine | DX: Z12.5 Encounter for screening for malignant neoplasm of prostate (principal) | CPT/HCPCS: G0103 ==

== ENCOUNTER 2025-01-08 05:15 | Emergency (ER) | payer MEDICARE, SELFPAY ==
--- NOTE | 2025-01-08 05:18 | XRR_ITS ---
PROCEDURE INFORMATION: Exam: XR Abdomen Exam date and time: 01/08/2025 5:30 AM Age: 69 years old Clinical indication: Abdominal pain; Generalized; Prior surgery; Surgery date: 6+ months; Surgery type: Hernia repair; Abd pain with constipation x 2 days TECHNIQUE: Imaging protocol: Radiologic exam of the abdomen. Views: Frontal supine view of the abdomen. 1 View. COMPARISON: CT abdomen pelvis w con* [id number] 01/05/2023 12:49 PM FINDINGS: Gastrointestinal tract: Nonobstructive bowel gas pattern. There is a moderate amount of stool throughout the colon and rectum, which can be seen with constipation. Bones/joints: Degenerative changes of the spine seen. XR/XR KUB [id number] IMPRESSION: Moderate amount of stool throughout the colon and rectum, which can be seen with constipation.
[2025-01-08 05:25] VITALS: BP 132/76; PULSE 70; RESP 16; TEMP 36.5; O2SAT 97; BMI 29.9
--- OUTSIDE RECORDS SUMMARY | 2025-01-08 05:25 | XMS_ITS | Encounter Summary ---
Author Organization [facility] Address [address] [place] [address] Care Team Providers Care Web Master Name Role Phone Unavailable Primary Care Provider Unavailabl e Encounter Details Date Type Department Care Team (Latest Contact Info) Description 03/20/2006 Outpatient Historical [facility]- 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
--- OUTSIDE RECORDS SUMMARY | 2025-01-08 05:25 | XMS_ITS | Encounter Summary ---
Author Organization [facility] Address [address] [place] [address] Care Team Providers Care Bed Operator Name Role Phone Unavailable Primary Care Provider Unavailabl e Encounter Details Date Type Department Care Team (Latest Contact Info) Description 03/04/2006 Outpatient Historical [facility] [address] 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 Gender Identity Not on file Sexual Orientation Not on file documented as of this encounter Plan of Treatment Not on file documented as of this encounter Procedures Procedure Name Priority Date/Time Associated Diagnosis Comments XR TIBIA AND FIBULA 2 VW RIGHT Routine 03/04/2006 5:54 PM CDT XR FEMUR 2 VW RIGHT Routine 03/04/2006 5 :54 PM CDT documented in this encounter Results * XR TIBIA AND FIBULA 2 VW RIGHT (03/04/2006 5:54 PM CDT) Anatomical Region Laterality Modality Lower Extremity Other 03/04/2006 5:54 PM CDT Narrative 03/04/2006 5:54 PM CDT Right Tibia/FibulaDate: 03/04/06 at 1807 hours. Indication: Tractor accident. Findings: 4 images were obtained. Tiny avulsion fracture is noted at the medial tibial condyle in thefrontal view. The age of this injury is uncertain and correlation is required. Impression: Medial tibial condylar avulsion fracture. - Dictated By: Eagle Clifton M.D. Electronically Signed By: Eagle Clifton M.D. Date Signed: 03/04/06 AMA Procedure Note 04/28/2009 Right Tibia/FibulaDate: 03/04/06 at 1807 hours. Indication: Tractor accident. Findings: 4 images were obtained. Tiny avulsion fracture is noted at the medialtibial condyle in thefrontal view. The age of this injury is uncertain and correlation is required. Impression: Medial tibial condylar avulsion fracture. - Dictated By: Eagle Clifton M.D. Electronically Signed By: Eagle Clifton M.D. Date Signed: 03/04/06 AMA Papo Melton DO DIAGNOSTIC IMAGING ORDERAB LES Final Result * XR FEMUR 2 VW RIGHT (03/04/2006 5:54 PM CDT) Anatomical Region Laterality Modality Lower Extremity Other 03/04/2006 5:54 PM CDT Narrative 03/04/2006 5:54 PM CDT Right Femur. Date: 03/04/06 at 1806 hours. Indication: Tractor accident. Findings: 5 images were obtained. The study is limited. No acute abnormalities are seen. Impression: No femur fracture identified. - Dictated By: Eagle Clifton M.D. Electronically Signed By: Eagle Clifton M.D. Date Signed: 03/04/06 AMA Procedure Note 04/28/2009 Right Femur. Date: 03/04/06 at 1806 hours. Indication: Tractor accident. Findings: 5 images were obtained. The study is limited. No acute abnormalities areseen. Impression: No femur fracture identified. - Dictated By: Eagle Clifton M.D. Electronically Signed By: Eagle Clifton M.D. Date Signed: 03/04/06 AMA Papo Melton DO DIAGNOSTIC IMAGING ORDERAB LES Final Result documented in this encounter Visit Diagnoses Diagnosis Hip, thigh, leg, and ankle, abrasion or friction burn, without mention of infection- Primary documented in this encounter
--- OUTSIDE RECORDS SUMMARY | 2025-01-08 05:25 | XMS_ITS | Clinical Summary ---
Author Organization [facility] Address [address] 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
--- OUTSIDE RECORDS SUMMARY | 2025-01-08 05:25 | XMS_ITS | Encounter Summary ---
Author Organization [facility] Address [address] [place] [address] Care Team Providers Care Trustee Of Estate Name Role Phone Unavailable Primary Care Provider Unavailabl e Encounter Details Date Type Department Care Team (Latest Contact Info) Description 03/10/2006 Outpatient Historical [facility] Orthopedics- 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
--- OUTSIDE RECORDS SUMMARY | 2025-01-08 05:25 | XMS_ITS | Encounter Summary ---
Author Organization [facility] Address [address] [place] [address] Care Team Providers Care Director Of Nurses Registry Name Role Phone Unavailable Primary Care Provider Unavailabl e Encounter Details Date Type Department Care Team (Late st Contact Info) Description 03/04/2006 Emergency [facility] Emergency Department [address] 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
--- OUTSIDE RECORDS SUMMARY | 2025-01-08 05:25 | XMS_ITS | Clinical Summary ---
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
--- NOTE | 2025-01-08 05:29 | W.ED.ABDPA2 ---
HPI - Abdominal Pain General: Chief Complaint: Abdominal Pain Stated Complaint: constipated abd pain Time Seen by Provider: 01/08/25 05:18 Source: patient Mode of arrival: ambulatory Limitations: no limitations History of Present Illness: 69-year-old male who states he has been constipated for last 3 days. He states that he like a lot of pressure in his rectum unable to have a bowel movement. States he is having some lower abdominal cramping rates a 2 out of 10 denies any severe pain denies any vomiting denies any fevers. Associated Symptoms: Reports constipation; Denies chills, diarrhea, dysuria, fever(s), nausea and vomiting Related Data Home Medications ?Medication ?Instructions ?Recorded ?Confirmed Lactobacillus acidophilus 20,000 mmu cells PO DAILY 01/05/23 11/11/24 (Acidophilus capsule) alfalfa 250 mg tablet 1,750 mg PO DAILY 01/05/23 11/11/24 ascorbic acid (vitamin C) 500 mg 4,000 mg PO DAILY 01/05/23 11/11/24 tablet (Vitamin C) beta carotene 30 mg capsule 30 mg PO DAILY 01/05/23 11/11/24 cinnamon bark 500 mg capsule 3,500 mg PO DAILY 01/05/23 11/11/24 (Cinnamon) coconut oil 1,000 mg capsule 2,000 mg PO DAILY 01/05/23 11/11/24 garlic 100 mg tablet 300 mg PO DAILY 01/05/23 11/11/24 bharath root extract 15 mg chewable 45 mg PO DAILY 01/05/23 11/11/24 tablet green tea leaf extract 2 cap PO DAILY 01/05/23 11/11/24 saw palm 160 mg-vit E 100 3 tab PO DAILY 01/05/23 11/11/24 unit-selen 100 [id number]-pygeum tablet (Prostate Health) saw palmetto 160 mg capsule 1,120 mg PO DAILY 01/05/23 11/11/24 selenium 200 mcg tablet 200 mcg PO DAILY 01/05/23 11/11/24 potassium chloride 20 mEq oral 20 meq PO DAILY 07/04/23 11/11/24 packet Previous Rx's ?Medication ?Instructions ?Recorded meloxicam 15 mg tablet 15 mg PO DAILY PRN shoulder pain 11/02/24 30 days #30 tabs tizanidine 4 mg tablet 4 mg PO Q8H PRN muscle spasticity 11/02/24 #30 tabs doxycycline monohydrate 100 mg 100 mg PO BID 14 days #28 tabs 11/11/24 tablet polyethylene glycol 3350 17 gram 17 g PO DAILY #14 ea 01/08/25 oral powder packet (Miralax) Allergies Allergy/AdvReac Type Severity Reaction Status Date / Time TIFFANY Inhibitors Allergy cough Verified 11/02/24 06:38 pork derived (porcine) Allergy Unknown Verified 11/02/24 06:38 shellfish derived Allergy Unknown Verified 11/02/24 06:38 Review of Systems Const: Denies: fever(s), chills, body aches or change in appetite ENMT: Denies: throat pain or dental pain Card: Denies: chest pain Resp: Denies: dyspnea GI: Reports: abdominal pain and constipation; Denies: nausea, vomiting or diarrhea : Denies: dysuria Musc: Denies: neck pain or back pain Skin/Breast: Denies: rash Neuro: Denies: headache(s) PFSH ED PFSH: Medical History Hx of small bowel obstruction Surgical History History of hernia surgery 08/04/23 Dr Brasher Laparoscopic repair of ventral incisional hernia with mesh, lysis of additions History of right knee joint replacement Social History Smoking and tobacco/nicotine status: former use of tobacco/nicotine Physical Exam Const: COMMON NORMALS: no acute distress, patient oriented x3 and healthy appearing HENMT: COMMON NORMALS: normocephalic and atraumatic HEAD & SCALP: normocephalic and atraumatic Eye: COMMON NORMALS: conjunctivae normal CONJUNCTIVA: Yes conjunctivae normal Neck/C-Spine: COMMON NORMALS: full ROM and supple Chest: COMMONS NORMALS: normal inspection of the chest Resp: COMMON NORMALS: normal respiratory effort, No retractions, No use of accessory muscles and clear to auscultation bilaterally AUSCULTATION: clear to auscultation bilaterally Cardio: COMMON NORMALS: regular rate, regular rhythm and No murmurs present (Cardio) RATE: regular rate RHYTHM: regular rhythm GI: COMMON NORMALS: Normal to inspection, nondistended, normoactive bowel sounds present, Soft to palpation, non-tender and no masses PALPATION: Yes Soft to palpation Extremity: COMMON NORMALS: normal to inspection and full ROM Neuro: COMMON NORMALS: patient oriented x3, moves all extremities and no focal motor deficits Psych: COMMON NORMALS: mental status grossly normal, Normal thought process present and cooperative THOUGHT PROCESS: Normal thought process present Skin: COMMON NORMALS: no rashes or lesions noted and no wounds GENERAL SKIN EXAM: no rashes or lesions noted Course Vital Signs: Vital signs: Vital Signs Temperature 97.7 F 01/08/25 05:25 Pulse Rate 65 01/08/25 06:00 Respiratory Rate 18 01/08/25 06:00 Blood Pressure 143/68 01/08/25 06:00 Pulse Oximetry 95 01/08/25 06:00 Oxygen Delivery Me thod Room Air 01/08/25 06:00 MDM - Abdominal Pain Medical Decision Making Patient presents for constipation x-ray shows constipation he is stable for discharge we will start him on MiraLAX did give him lactulose here no signs small bowel obstruction return if worsening. Medical Records I reviewed the patient's medical records. XR interpretation done by ED provider, pending radiology final review ED provider radiology interpretation(s): xr kub: constipation Discharge Plan Discharge Patient Disposition: Home Clinical Impression: Constipation Condition: Stable Prescriptions: New polyethylene glycol 3350 [Miralax] 17 gram powder in packet 17 g PO DAILY Qty: 14 0RF No Action meloxicam 15 mg tablet 15 mg PO DAILY PRN (Reason: shoulder pain) 30 Days Qty: 30 5RF Rx Instructions: WITH FOOD tizanidine 4 mg tablet 4 mg PO Q8H PRN (Reason: muscle spasticity) Qty: 30 5RF potassium chloride 20 mEq packet 20 meq PO DAILY doxycycline monohydrate 100 mg tablet 100 mg PO BID 14 Days Qty: 28 0RF Rx Instructions: pork allergy, tablet only that wont interact garlic 100 mg Tablet 300 mg PO DAILY beta carotene 30 mg Capsule 30 mg PO DAILY selenium 200 mcg Tablet 200 mcg PO DAILY ascorbic acid (vitamin C) [Vitamin C] 500 mg Tablet 4,000 mg PO DAILY saw palmetto 160 mg Capsule 1,120 mg PO DAILY Rx Instructions: give with meal/snack Acidophilus Capsule 20,000 mmu cells PO DAILY green tea leaf extract Capsule 2 cap PO DAILY cinnamon bark [Cinnamon] 500 mg Capsule 3,500 mg PO DAILY alfalfa 250 mg Tablet 1,750 mg PO DAILY coconut oil 1,000 mg Capsule 2,000 mg PO DAILY Prostate Health 160-100-100 mg-unit-mcg Tablet 3 tab PO DAILY bharath root extract 15 mg Tablet,Chewable 45 mg PO DAILY Discharge Orders: Discharge ED (Routine); Ordered 01/08/25 Ordered By: Angelika Traylor Referrals: Neelam Pappas MD [Primary Care Provider, Family Practice] Discharge Diet: Advance as tolerated Discharge Activity: Resume usual activity Patient Instructions: Constipation (ED) Print Language: German Coding Level of Care Code 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
[2025-01-08] MEDS: lactulose oral liq 20 gm/30 mL UDC 30 GM PO (05:44)
[2025-01-08 06:00] VITALS: BP 143/68; PULSE 65; RESP 18; O2SAT 95
[2025-01-08 07:01] VITALS: BP 124/76; PULSE 68; O2SAT 97
== END 2025-01-08 07:07 | disposition home or self-care (01) ==
PROVIDERS: Emergency Provider Emergency Medicine; PCP Family Medicine
DX: K59.00 Constipation, unspecified (principal); Z87.891 Personal history of nicotine dependence
CPT/HCPCS: 74018; 99283; J9999